=== PATIENT | female | born 1975 | race Caucasian/White ===

== ENCOUNTER → 2017-08-06 15:42 | Outpatient (CLI) | payer BC, SELFPAY ==
--- NOTE | 2017-08-06 15:55 | CT_ITS ---
CT abdomen wo con Ordering Physician: Brent Coffey Patient Age: 41 years: Female HISTORY: ITS.REASON: RT FLANK PAIN, NAUSEA, HEMATURIA Right flank pain and hematuria. HISTORY stones TECHNIQUE: Helical CT scanning performed at of pelvis with no oral nor IV contrast utilized Sagittal coronal and axial reconstructions on CT workstation COMPARISON : CT January 02, 2015 FINDINGS Lung bases clear. Calcified granuloma towards right lung base with calcified right hilar lymph node . Abdomen/pelvis. Lack of oral and IV contrast decreases sensitivity. Liver. No focal lesion. No significant findings Spleen normal size. Pancreas unremarkable. Adrenals unremarkable. Gallbladder. Heart contracted no calcified stones. No biliary ductal dilatation. Kidneys. Scattered punctate calculi throughout both kidneys but no recurrent urinary tract obstruction. The ovaries appear normal in caliber and appearance bilateral. Right kidney largest calculus measuring 5 mm lower pole right kidney. Smaller 3 mm calculi seen anterior midportion right kidney. Previously there were 2 small calculi in this locationqq and one has passed since 2015 Left kidney. A few Scattered small punctate ~3 mm calculi throughout left kidney with no obstruction. Pelvis. Anteverted uterus. Normal size. Ovaries appear normal in size with right larger than left. Right ovary 3 cm APx 3 cm transverse... Left ovary 3 cm length x 1.5 cm. No fluid in cul-de-sac. Urinary bladder unremarkable Appendix identified and normal. Large bowel Moderate stool throughout the right colon and transverse colon of minimal stool and gas throughout the left colon and redundant sigmoid colon. Small fat-containing Ventral hernia seen at the midline upper abdomen.- This is located 5 cm superior to the umbilicus. The abdominal wall defect here measuring 12 mm height 20 mm transverse. Fat-containing hernia sac measures 2.5 cm. There is some minor stranding here which could reflect some minor inflammation. Is patient focally tender here currently?. This was present on previous 2014 study in retrospect and only slightly more evident today. Bones. No significant osseous lesions or or findings. Early degenerative facet changes lower L-spine IMPRESSION: 1. Bilateral punctate renal calculi again noted. But No current obstructive uropathy. No hydronephrosis Right & left ureter appear normal in caliber. 2. Small fat-containing midline ventral hernia. Slightly more evident than previous study. Up to 2 cm abdominal wall defect is slightly larger in 2015,. Minor stranding involving fat extending into small hernia sac fairly similar to prior study but warrants correlation. 3. Appendix normal. Right ovary normal size but slightly larger than left. No fluid in cul-de-sac
== END ==
PROVIDERS: PCP Internal Medicine; Visit Provider Internal Medicine
DX: R10.9 Unspecified abdominal pain (principal); R11.0 Nausea; R31.9 Hematuria, unspecified
CPT/HCPCS: 74150

== ENCOUNTER 2017-08-20 09:30 | Outpatient (RCR) | payer BC, SELFPAY | END 2017-08-20 09:31 | disposition home or self-care (01) | LOC: PT 09:30 | PROVIDERS: Family Provider Internal Medicine; PCP Internal Medicine; Visit Provider Internal Medicine | DX: S39.012A Strain of muscle, fascia and tendon of lower back, initial encounter (principal) | CPT/HCPCS: 97010; 97014; 97110; 97163; G0283 ==

== ENCOUNTER → 2018-01-13 08:11 | Outpatient (CLI) | payer BC, SELFPAY ==
[2018-01-13 08:36] LABS: Basophils # 0.1 K/mm3 (0-0.2); Basophils % 0.6 % (0.1-2.0); Eosinophils # 0.3 K/mm3 (0.0-0.4); Eosinophils % 2.3 % (0.1-12.0); Hematocrit 38.7 % (37.0-47.0); Hemoglobin 12.2 g/dL (12.2-16.2); Lymphocytes # 3.6 K/mm3 (0.7-4.5); Lymphocytes % 30.5 K/mm3 (10-50); Mean Corpuscular HGB Conc 31.4 g/dL (31.8-35.4); Mean Corpuscular Hemoglobin 25.7 pg (27.0-31.2); Mean Corpuscular Volume 81.8 fl (81-99); Mean Platelet Volume 7.3 fl (7.4-10.4); Monocytes # 0.9 K/mm3 (0.1-1.0); Monocytes % 7.2 % (1.7-9.3); Neutrophils % 59.4 % (37.0-80.0); Platelet Count 409 K/mm3 (142-424); Red Blood Count 4.73 M/mm3 (4.20-5.40); Red Cell Distribution Width 14.3 % (11.5-17.5); White Blood Count 11.9 K/mm3 (4.8-10.8)
[2018-01-13 08:44] LABS: Urine Pregnancy, HCG Qual. Negative (Negative)
[2018-01-13 10:03] LABS: Anion Gap 9.8 mEq/L (5-15); Blood Urea Nitrogen 14 mg/dL (7-18); Calcium 9.4 mg/dL (8.5-10.1); Carbon Dioxide 33 mmol/L (21.0-32.0); Chloride 104 mmol/L (98-107); Creatinine,Serum 0.75 mg/dL (0.55-1.02); Estimated Glomerular Filt Rate 85 ml/min (>60); GFR (African American) 103 ML/MIN (>60); Glucose 85 mg/dL (74-106); Potassium 3.8 mmoL/L (3.5-5.1); Sodium 143 mmol/L (136-145)
== END ==
PROVIDERS: PCP Internal Medicine; Visit Provider Surgery
DX: N64.52 Nipple discharge (principal)
CPT/HCPCS: 36415; 80048; 81025; 85025

== ENCOUNTER → 2018-05-20 15:29 | Outpatient (CLI) | payer BC, SELFPAY ==
[2018-05-20 15:36] LABS: Basophils % 0.1 % (0.1-2.0); Eosinophils # 0.2 K/mm3 (0.0-0.4); Eosinophils % 1.4 % (0.1-12.0); Hematocrit 38.9 % (37.0-47.0); Hemoglobin 12.7 g/dL (12.2-16.2); Lymphocytes # 1.4 K/mm3 (0.7-4.5); Lymphocytes % 12.2 % (10-50); Mean Corpuscular HGB Conc 32.6 g/dL (31.8-35.4); Mean Corpuscular Hemoglobin 25.7 pg (27.0-31.2); Mean Corpuscular Volume 78.9 fl (81-99); Mean Platelet Volume 7.1 fl (7.4-10.4); Monocytes # 0.6 K/mm3 (0.1-1.0); Neutrophils # 9.2 K/mm3 (1.8-7.8); Neutrophils % 81.2 % (37.0-80.0); Platelet Count 343 K/mm3 (142-424); Red Blood Count 4.93 M/mm3 (4.20-5.40); Red Cell Distribution Width 14.6 % (11.5-17.5); White Blood Count 11.3 K/mm3 (4.8-10.8)
[2018-05-20 16:06] LABS: Alanine Aminotransferase 27 U/L (12-78); Albumin Level 3.4 gm/dL (3.4-5.0); Alkaline Phosphatase 73 U/L (46-116); Amylase 29 U/L (25-115); Aspartate Amino Transferase 17 U/L (15-37); Bilirubin,Direct 0.1 mg/dL (0.0-0.2); Bilirubin,Indirect 0.3 mg/dL (0.0-0.9); Bilirubin,Total 0.4 mg/dL (0.2-1.0); Total Protein,Serum 7.3 gm/dL (6.4-8.2)
== END ==
PROVIDERS: Visit Provider Internal Medicine
DX: R10.13 Epigastric pain (principal)
CPT/HCPCS: 80076; 82150; 85025

== ENCOUNTER → 2018-06-23 14:40 | Outpatient (CLI) | payer BC, SELFPAY ==
--- NOTE | 2018-06-23 14:52 | US_ITS ---
MM Dig mamm DX unilat RT CAD, US breast RT complete INDICATION: Palpable nodule at 1:00, recent breast surgery ORDERING PHYSICIAN: Price Lockhart MD PATIENT AGE: 42 years COMPARISON: 11/16/2017, 12/05/2014 TECHNIQUE: Right mammogram with right breast ultrasound with axilla FINDINGS: Initially ultrasound was performed demonstrating a hypoechoic irregular mass at the 2:00 region with posterior acoustical shadowing. In addition there is a 10 x 8 mm isoechoic nodule in the subcutaneous tissues at 2:00 near the nipple also in the palpable area. Cannot determine if this has posterior acoustical shadowing as it is just superficial to the previously described hypoechoic lesion. No other significant anomalies are evident. Right mammogram: Right mammogram was performed in conjunction with the ultrasound demonstrating a spiculated 2.4 x 2.5 cm irregular area of increased density in the medial aspect of the right breast. This was not present on 11/16/2017 and probably represents scarring. Core biopsy suggested for confirmation. There is an area of asymmetric density in the central aspect of the right breast at 5 mm. Probably benign. No other significant anomalies are evident. IMPRESSION: 2.5 cm irregular spiculated density in the medial aspect of the right retroareolar region with a corresponding hypoechoic lesion on ultrasound. As probably represents postsurgical scarring. Neoplasm cannot be excluded based on the appearance. There is an additional isoechoic nodule in the subcutaneous region superficial to this more suspicious lesion. Was not apparent on the older ultrasound of 12/05/2014. Core biopsy of both nodules recommended with sonographic guidance BI-RADS Category: 4 Suspicious Abnormality-Biopsy Considered RECOMMENDED FOLLOW-UP: BIO - BIOPSY RECOMMENDED (A letter has been sent to the patient regarding results of the study.)
== END ==
PROVIDERS: PCP Internal Medicine; Visit Provider Surgery
DX: N63.10 Unspecified lump in the right breast, unspecified quadrant (principal)
CPT/HCPCS: 76641; 77065

== ENCOUNTER → 2018-07-19 09:17 | Outpatient (CLI) | payer BC, SELFPAY ==
--- NOTE | 2018-07-19 09:18 | US_ITS ---
US Biopsy Breast CLINICAL INDICATION: Right breast nodule in subareolar region with palpable abnormality ITS.REASON: rt breast biopsy ORDERING PHYSICIAN: Price Lockhart MD PATIENT AGE: 42 years COMPARISON: 06/23/2018 TECHNIQUE: Following obtaining informed consent using sonographic guidance under aseptic conditions fine-needle aspiration and core biopsy was obtained of the subareolar nodules. Nodule which is the more hyperechoic nodule was initially aspirated with a 27-gauge needle. Core biopsy was then performed a 19-gauge Can-Cut biopsy needle. Pathology nodule A: Consistent with previous biopsy site changes and associated fat process. No evidence of malignancy. FNA nodule A: Negative for malignant cells. The area of hypoechogenicity which is labeled as B deep to the nipple was then aspirated with a 27-gauge needle and then core biopsy was performed with a 19-gauge Can-Cut needle. FNA B: Negative for malignant cells. Pathology B: Consistent with previous biopsy site changes and associated fat necrosis. No evidence of malignancy IMPRESSION: Fine-needle aspiration and core biopsy of the palpable nodule the right breast and deeper area of hypoechogenicity showing benign findings consistent with previous biopsy changes and fat necrosis. Recommend 6 month mammographic and sonographic follow-up per routine protocol
== END ==
PROVIDERS: PCP Internal Medicine; Visit Provider Surgery
DX: N63.10 Unspecified lump in the right breast, unspecified quadrant (principal)
CPT/HCPCS: 10005; 76642; 76942

== ENCOUNTER → 2018-07-21 07:30 | Outpatient (CLI) | payer BC, SELFPAY ==
--- NOTE | 2018-07-21 07:32 | CA_ITS ---
PROCEDURE: 2-D M-mode and color Doppler study INDICATIONS FOR THE TEST: Chest painX COPD Heart MurmurX Tobacco Smoking Palpitations FatigueX Syncope Edema HypertensionXDiabetes Mellitus Rheumatic Fever SOBXDOE ObesityXHyperlipidemia Family History HD Additional History ABN EKG PATIENT INFORMATION HEIGHT:64 WEIGHT:242 GENDER: Female B/P:178/91 2-D/M-MODE INTERPRETATION: 2-D MEASUREMENTS OBSERVED VALUES IN CMS Right Ventricular Dimension (RVDd) 1.9 Interventricular Septum (Thickness)(IVsd) 1.2 Left Ventricular Internal Dimensions(LVIDd) 5.0 Left Ventricular Posterior Wall (Thickness)(LVPWd) 1.2 Aortic Root 3.0 Aortic Cusp Separation 1.6 Left Atrial Dimensions (LAD) 3.6 2D 1. Left atrium is normal size, left ventricle is normal size, left ventricle wall thickness is upper limit of normal, it is preserved left ventricular systolic function, visually estimated ejection fraction 55% with no regional wall motion abnormality. 2. The right atrium and the ventricular normal size and contractility. 3. The aortic, mitral and tricuspid valve are grossly normal. 4. The pulmonic valve is poorly visualized. 5. No significant pericardial effusion noted. DOPPLER INTERROGATION: Doppler interrogation of the aortic, mitral and tricuspid valvular presence of mild mitral and tricuspid regurgitation, tricuspid regurgitation jet velocity is inadequate for calculation of the right ventricular systolic pressure, diastolic parameters are within normal range. CONCLUSION: 1. Normal left ventricular size, left ventricular systolic function, visually estimated ejection fraction 55% with no regional wall motion abnormality, diastolic parameters are within normal range. 2. Mild mitral and tricuspid regurgitation 3. No significant pericardial effusion noted.
--- NOTE | 2018-07-21 07:32 | AS_ITS ---
Renal Arterial Duplex Indications: 405.91 Unspecified renovascular hypertension. IMPRESSIONS Normal bilateral renal artery evaluation. History: Risk factors: Hypertension. Complete renal arterial duplex. Duplex scan and Doppler flow study including spectral analysis, color and ross scale imaging. Height: Height: 162.6cm. Height: 64in. Weight: Weight: 109.8kg. Weight: 241.5lb. Body mass index: BMI: 41.5kg/m^2. Body surface area: BSA: 2.28m^2. Location: Vascular laboratory. Patient status: Outpatient. Tables: Arterial flow: + +--------+--------+ Location V sys V ed + +--------+--------+ Right renal - proximal 169cm/s 68.4cm/s + +--------+--------+ Right renal - mid 153cm/s 46.9cm/s + +--------+--------+ Right renal - distal 183cm/s 26.4cm/s + +--------+--------+ Left renal - proximal 99.3cm/s 30.2cm/s + +--------+--------+ Left renal - mid 207cm/s 68.4cm/s + +--------+--------+ Left renal - distal 177cm/s 67.9cm/s + +--------+--------+ Right renal-origin 150cm/s 47.9cm/s + +--------+--------+ Left renal-origin 91.3cm/s 20.6cm/s + +--------+--------+ Aorta-prox 126cm/s -------- + +--------+--------+ Renal anatomy: + +------+------+ Left Right + +------+------+ Long axis 10.5cm 11.6cm + +------+------+ Short axis 6.1cm 7.5cm + +------+------+ Cortical thickness 2.2cm 1.8cm + +------+------+ Velocity ratios: + +-----+ V sys + +-----+ Right renal/aortic 1.5 + +-----+ Left renal/aortic 1.6 + +-----+ (Report amended ) Electronically signed by: Carlos Saucedo [id number]
== END ==
PROVIDERS: PCP Internal Medicine; Visit Provider Internal Medicine
DX: D86.9 Sarcoidosis, unspecified (principal); I10 Essential (primary) hypertension; R06.00 Dyspnea, unspecified; R07.9 Chest pain, unspecified
CPT/HCPCS: 93306; 93976

== ENCOUNTER → 2020-02-08 17:19 | Outpatient (CLI) | payer BC, SELFPAY | PROVIDERS: Visit Provider Nurse Practitioner Family | DX: Z02.4 Encounter for examination for driving license (principal) | CPT/HCPCS: 87086 ==

== ENCOUNTER → 2020-02-09 11:14 | Outpatient (CLI) | payer BC, SELFPAY ==
--- NOTE | 2020-02-09 11:19 | XR_ITS ---
PROCEDURE: XR LUMBAR SPINE MIN 4V CLINICAL INDICATION: LOW BACK PAIN COMPARISON: CR [id number] XR lumbar spine min 4V from 08/13/2017 FINDINGS: There is normal curvature and alignment. All lumbar vertebrae appear intact. There is no pars defect. There is no disc space narrowing. There are mild hypertrophic facet changes at the L5-S1 level. The SI joints appear normal. There is no significant joint space narrowing of either hip. IMPRESSION: Essentially unremarkable lumbar spine except for minor facet changes L5-S1 Dictated by: Dr. Matthias Jackson MD 02/09/2020 11:44 Dr. Matthias Jackson MD in [place] 02/09/2020 11:44
== END ==
PROVIDERS: PCP Internal Medicine; Visit Provider Internal Medicine
DX: M54.5 Low back pain (principal)
CPT/HCPCS: 72110

== ENCOUNTER → 2020-03-16 10:58 | Outpatient (CLI) | payer BC, SELFPAY ==
--- NOTE | 2020-03-16 | MR_ITS ---
PROCEDURE: MR LUMBAR SPINE WO CON CLINICAL INDICATION: LBP Pt c/o lbp with rt hip pain and numbness. Pt denies injury or trauma and states pain is chronic in nature but getting worse. COMPARISON: CT ABDWO CT abdomen wo con from 08/06/2017 CR XR LUMBAR SPINE MIN 4V from 02/09/2020 TECHNIQUE: Standard multiplanar multiecho sequences are performed without contrast. 3-D MIP and myelographic images are also rendered and reviewed FINDINGS: There is normal alignment. The spinal cord ends at the L2 level. L1-L2, L2-L3, L3-L4, and L4-5 have an unremarkable appearance. L5-S1: There is mild concentric bulging disc with a small broad-based central and right paracentral disc protrusion causing mild right lateral recess narrowing but without impingement upon the underlying nerve roots. IMPRESSION: 1. Mild bulging disc with mild degenerative disc disease at L5-S1 with a small broad-based central and right paracentral disc protrusion without impingement 2. No extruded herniated disc or canal stenosis. Dictated by: Carlos Saucedo MD 03/19/2020 13:01 Carlos Saucedo MD in [place] 03/19/2020 13:01
== END ==
PROVIDERS: PCP Internal Medicine; Visit Provider Internal Medicine
DX: M54.5 Low back pain (principal); R20.2 Paresthesia of skin
CPT/HCPCS: 72148; 76376

== ENCOUNTER → 2020-08-20 16:11 | Outpatient (CLI) | payer BC, SELFPAY | PROVIDERS: Visit Provider Surgery | DX: Z01.812 Encounter for preprocedural laboratory examination (principal); Z11.52 Encounter for screening for COVID-19; Z13.810 Encounter for screening for upper gastrointestinal disorder | CPT/HCPCS: U0003 ==

== ENCOUNTER 2020-08-22 06:31 | Day surgery (SDC) | payer BC, SELFPAY ==
[2020-08-20 13:58] VITALS: BMI 41.1
[2020-08-22 06:56] VITALS: BP 194/100; PULSE 77; RESP 18; TEMP 36.6; O2SAT 98
--- NOTE | 2020-08-22 07:05 | HMH.ANESCL ---
[facility] Anesthesia Checklist - Patient Identification Patient Identification: Arm Band - Structural Data Admitted From: Home Planned Operative Procedure/s: Colonoscopy Consent for Planned Operative Procedure(s) Verified: Yes - NPO Status Verified Time NPO: 00:00 - Additional verifications Anesthesia Reactions: No Hx Blood Transfusions: No Blood Transfusion Reaction: No - Airway Assessment C-Spine Mobility Assessed: Yes TMJ Mobility Assessed: Yes Dentition: Good Dentition - Neurological Assessment Level of Consciousness: Awake, Alert - Anesthesia Plan Anesthesia Risk discussed: Yes Anesthesia Plan: Verified ASA Class: III Anesthesia Type: MAC [facility] History I have reviewed the patient's past medical history: Yes Medical History: Reports:: Asthma, Hiatal Hernia, Hypertension (Severe), Lung Disease (Sarcoidosis) Denies:: Cancer, Diabetes Mellitus Type 1, Diabetes Mellitus Type 2, Internal Pacemaker, MRSA, Seizures *Have you ever received a pneumonia vaccine?: Yes *Have you received a flu vaccine this season?: Yes Other Medical History: Reports: Arthritis. Denies: Blood Transfusion Reaction Anesthesia experience/problems:: None Laterality Cases: Right: Carpal Tunnel Release Other Surgeries: Yes: No Previous Surgery, Colonoscopy, Other. No: Pacemaker Amputation: No Fractures: No - *Social History Last grade of school completed: Some college Smoking Status: Former smoker # Packs/Day (cigarettes): 1 #Yrs smoked (if former smoker): 15 Alcohol Intake: never Substance Use Type: denies use *Occupational Status:: employed Housing: house Household Members: none *Travel in the last 8 weeks: None Family Hx:: Cancer
[2020-08-22 07:26] VITALS: O2SAT 97
--- NOTE | 2020-08-22 07:39 | HMH.SCOPE ---
- Procedure: Date: 08/22/20 Patient Date of :: 1975 Procedure Performed:: Esophagogastroduodenoscopy with biopsy Indications:: Reflux Performing Provider:: Price Lockhart MD Referring Provider:: Dr. Coffey Sedation:: Monitored anesthesia care Procedure:: After informed consent was obtained the patient was taken to the endoscopy suite. Sedation ensued after the patient was transferred to the left lateral decubitus position. Pulse, blood pressure, and oxygen saturation were monitored throughout the procedure. The endoscope was advanced beyond the duodenal bulb. Retroflexion within the gastric lumen was accomplished. The gastroscope was carefully removed and the patient was transferred to recovery in stable condition. Please see findings and specimens below for detail. Findings:: Gastroesophageal junction at 38 cm Lobulated focal inflammation at gastroesophageal junction Minimal sliding hiatal hernia Focal inflammation at pylorus Bilious reflux Specimens:: Biopsy of focal inflammation of pylorus Antral biopsy Biopsy of focal lobulated inflammation at gastroesophageal junction Recommendations:: Follow-up pathology Complications:: No immediate Estimated blood obtained (mL): 1
[2020-08-22 07:41] VITALS: BP 131/66; PULSE 63; RESP 18; TEMP 36.2; O2SAT 95
[2020-08-22 07:51] VITALS: BP 127/83; PULSE 60; RESP 18; O2SAT 96
[2020-08-22 08:01] VITALS: BP 147/90; PULSE 56; RESP 18; O2SAT 97
[2020-08-22 08:17] VITALS: BP 160/99; PULSE 54; RESP 18; O2SAT 98
== END 2020-08-22 08:19 | disposition home or self-care (01) ==
PROVIDERS: PCP Internal Medicine; Visit Provider Surgery
PROC: 0DJ08ZZ Inspection of Upper Intestinal Tract, Via Natural or Artificial Opening Endoscopic (ICD-10-PCS; CPT 43235; principal; 2020-08-22 07:30)
DX: K20.90 Esophagitis, unspecified without bleeding (principal); K44.9 Diaphragmatic hernia without obstruction or gangrene; K29.70 Gastritis, unspecified, without bleeding; K21.9 Gastro-esophageal reflux disease without esophagitis; J45.909 Unspecified asthma, uncomplicated; I10 Essential (primary) hypertension; Z87.891 Personal history of nicotine dependence; Z87.39 Personal history of other diseases of the musculoskeletal system and connective tissue; Z82.49 Family history of ischemic heart disease and other diseases of the circulatory system; Z82.3 Family history of stroke; Z88.6 Allergy status to analgesic agent; Z88.1 Allergy status to other antibiotic agents
CPT/HCPCS: 43239

== ENCOUNTER → 2020-09-02 13:56 | Outpatient (CLI) | payer BC, SELFPAY ==
--- NOTE | 2020-09-02 13:56 | US_ITS ---
PROCEDURE: MM DIG MAMM BI DX W/CAD Digital Breast Tomosynthesis Included CLINICAL INDICATION: nipple discharge COMPARISON: MG DMDB DIG MAMM-DX YOVANA from 12/05/2014 MG DXRT MM Dig mamm DX unilat RT CAD from 06/23/2018 US US BREAST RT COMPLETE from 09/02/2020 TECHNIQUE: Standard views are obtained along with spot compression views of the right breast and right breast ultrasound. FINDINGS: Average fibroglandular tissue. Right breast: Surgical clips along with asymmetric density with radiating folds noted in the retroareolar region slightly medial and inferior in the central aspect of the right breast consistent with scar. The asymmetric density has decreased in size compared to 06/23/2018. There is a cluster calcifications which are mostly coarse in this region as well which may be due to developing fat necrosis. Right breast ultrasound: There is a hypoechoic shadowing region in the retroareolar area consistent with scar. No other significant anomalies. Left breast: Stable benign-appearing nodule in the upper aspect of the left breast consistent with a lymph node. Small area of asymmetry in the medial aspect of the left breast central aspect not clearly delineated on the kevin images and may represent an area of asymmetric fibroglandular tissue. No malignant appearing mass or malignant-appearing microcalcification. IMPRESSION: Probably benign findings regarding the calcifications in the right breast in the asymmetric density in the left breast. Recommend six-month follow-up BI-RAD Category: 3 Probably Benign Finding Short Term Follow-Up FOLLOW-UP: 6M 6 Month Follow-up (A letter has been sent to the patient regarding results of the study.) Dictated by: Carlos Saucedo MD 09/10/2020 07:40 Carlos Saucedo MD in [place] 09/10/2020 07:40
== END ==
PROVIDERS: PCP Internal Medicine; Visit Provider Surgery
DX: N64.52 Nipple discharge (principal); R92.1 Mammographic calcification found on diagnostic imaging of breast
CPT/HCPCS: 76641; 77062; 77066; G0279

== ENCOUNTER → 2020-11-29 14:43 | Outpatient (CLI) | payer BC, SELFPAY ==
--- NOTE | 2020-11-29 14:45 | MR_ITS ---
PROCEDURE INFORMATION: Exam: MR Head Without and With Contrast, Sella Exam date and time: 11/29/2020 2:45 PM Age: 45 years old Clinical indication: Pain; Headache; Additional info: Headache, galactorrhea. Discharge out of breast x5yrs. Mirgraine headache. Dizziness and blurred vision. 20ml prohance given. Lot: [id number] exp: Jan [address] 03-14-14 TECHNIQUE: Imaging protocol: MR of the head without and with intravenous contrast. Exam focused on the sella. Contrast material: PROHANCE; Contrast volume: 20 ml; Contrast route: IV; COMPARISON: HDWO CT HEAD W/O CONTRAST 03/14/2014 6:02 PM FINDINGS: Brain: No acute infarct identified on the diffusion-weighted imaging. No evidence of brain parenchymal edema or intracranial mass effect. No significant white matter disease. No pathologic intracranial enhancement. 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 Cerebral ventricles: Unremarkable. No ventriculomegaly. Pituitary gland and sella: Unremarkable. Pituitary gland is normal in size maintaining a concave superior contour. No differential contrast enhancement identified within the gland to represent a discrete adenoma. Bones/joints: Unremarkable. IMPRESSION: 1. Unremarkable MRI brain. 2. No evidence of pituitary adenoma.
== END ==
PROVIDERS: PCP Internal Medicine; Visit Provider Internal Medicine
DX: R51.9 Headache, unspecified (principal); O92.6 Galactorrhea; E22.1 Hyperprolactinemia; R43.0 Anosmia
CPT/HCPCS: 70553; A9576

== ENCOUNTER → 2022-03-06 14:37 | Outpatient (CLI) | payer OTHER, SELFPAY | PROVIDERS: PCP Internal Medicine; Visit Provider Nurse Practitioner Family | DX: G47.33 Obstructive sleep apnea (adult) (pediatric) (principal) ==

== ENCOUNTER → 2022-03-23 16:27 | Outpatient (CLI) | payer OTHER, SELFPAY | LOC: SL 16:27 | PROVIDERS: PCP Nurse Practitioner Family; Visit Provider Nurse Practitioner Family | DX: G47.33 Obstructive sleep apnea (adult) (pediatric) (principal); R06.83 Snoring | CPT/HCPCS: 95806 ==

== ENCOUNTER 2022-04-25 12:37 | Emergency (ER) | payer OTHER, SELFPAY ==
[2022-04-25 12:38] VITALS: BP 216/99; PULSE 70; RESP 22; TEMP 36.8; O2SAT 98; BMI 41.1
--- NOTE | 2022-04-25 12:59 | EXP.UTC ---
Discharge Plan Disposition Patient Disposition: Home, Self-Care Condition: Good Prescriptions Prescriptions: No Action Ventolin HFA 90 mcg/actuation HFA aerosol inhaler 1 puff INHALATION Q6H PRN (Reason: lungs) Qty: 8 0RF amlodipine 10 mg tablet 10 mg PO BID Qty: 180 0RF bisoprolol fumarate 10 mg tablet 10 mg PO DAILY Qty: 90 0RF omeprazole 20 mg tablet,delayed release (DR/EC) 20 mg PO DAILY Qty: 30 0RF spironolactone 25 mg tablet 25 mg PO DAILY Qty: 90 0RF Symbicort 160-4.5 mcg/actuation HFA aerosol inhaler 2 puff INHALATION DAILY PRN (Reason: lungs) valsartan-hydrochlorothiazide 160-12.5 mg tablet 1 tab PO DAILY Qty: 30 5RF Referrals Follow up/Referrals: Brent Coffey MD [Primary Care Provider] - See instructions Activity Restrictions/Add. Instructions Additional Instructions/Restrictions: At this time was felt you are safe to be discharged home. If new or worsening symptoms please do not hesitate to return for continued evaluation. Please follow-up with your family doctor within 1 week for continued evaluation of long-term management of your blood pressure. Clinical Impressions Clinical Impression: Strain of lumbar region, Asymptomatic hypertension Instructions Patient Instructions: Managing Chronic Low Back Pain, Low Back Pain (Alternative Therapy), High Blood Pressure (Hypertension) (Alternative Therapy), Essential Hypertension, DI for Low Back Pain, Activity May Be Better Than Rest for Low Back Pain Recovery, Exercise May Reduce Risk of Low Back Pain Discharge ED Provider: Charles Martell [facility] General Chief complaint: PAIN Stated complaint: back pain, no accident Time Seen by Provider: 04/25/22 12:58 History of Present Illness Provider Complaint: Pt states that she was moving some furniture around and then could barely get out of bed for the pain in her lower back. Pt states that she had to wiggle out of the bed as crossing her right leg over her left hurt to badly. She states that she woke up late this morning and took her blood pressure medication shortly prior to arrival. Related Data Home Medications Medication Instructions Recorded Confirmed budesonide-formoterol HFA 160 2 puff inhalation DAILY PRN lungs 04/15/22 07/14/22 mcg-4.5 mcg/actuation aerosol inhaler (Symbicort) Previous Rx's Medication Instructions Recorded albuterol sulfate 90 mcg/actuation 1 puff inhalation Q6H PRN lungs #8 02/19/22 aerosol inhaler (Ventolin HFA) grams amlodipine 10 mg tablet 10 mg PO BID bp #180 tabs 02/19/22 bisoprolol fumarate 10 mg tablet 10 mg PO DAILY bp #90 tabs 02/19/22 omeprazole 20 mg tablet,delayed 20 mg PO DAILY GERD #30 tabs 02/19/22 release spironolactone 25 mg tablet 25 mg PO DAILY Fluid #90 tabs 02/19/22 valsartan 160 1 tab PO DAILY #30 tabs 07/14/22 mg-hydrochlorothiazide 12.5 mg tablet Allergies Allergy/AdvReac Type Severity Reaction Status Date / Time amoxicillin [AMOXICILLIN] Allergy Unknown NERVOUS Verified 07/14/22 13:11 codeine [CODEINE] Allergy Unknown SKIN Verified 07/14/22 13:11 [facility] Disclaimer: The information contained in this section may have been updated after the patient was seen, as this information can be updated by other users. 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
--- NOTE | 2022-04-25 13:59 | PC.NURSE ---
Called Emily patrick
[2022-04-25 14:10] VITALS: BP 216/95; PULSE 74; RESP 18; O2SAT 100; BMI 40.9
--- NOTE | 2022-04-25 15:16 | HMH.EDGENADL ---
Discharge Plan Disposition Patient Disposition: Home, Self-Care Condition: Good Prescriptions Prescriptions: No Action Ventolin HFA 90 mcg/actuation HFA aerosol inhaler 1 puff INHALATION Q6H PRN (Reason: lungs) Qty: 8 0RF amlodipine 10 mg tablet 10 mg PO BID Qty: 180 0RF bisoprolol fumarate 10 mg tablet 10 mg PO DAILY Qty: 90 0RF lisinopril-hydrochlorothiazide 20-12.5 mg tablet 1 tab PO BID Qty: 180 0RF omeprazole 20 mg tablet,delayed release (DR/EC) 20 mg PO DAILY Qty: 30 0RF spironolactone 25 mg tablet 25 mg PO DAILY Qty: 90 0RF Symbicort 160-4.5 mcg/actuation HFA aerosol inhaler 2 puff INHALATION DAILY PRN (Reason: lungs) naproxen 500 mg tablet 500 mg PO BID PRN Referrals Follow up/Referrals: Brent Coffey MD [Primary Care Provider] - See instructions Activity Restrictions/Add. Instructions Additional Instructions/Restrictions: At this time was felt you are safe to be discharged home. If new or worsening symptoms please do not hesitate to return for continued evaluation. Please follow-up with your family doctor within 1 week for continued evaluation of long-term management of your blood pressure. Clinical Impressions Clinical Impression: Strain of lumbar region, Asymptomatic hypertension Instructions Patient Instructions: Managing Chronic Low Back Pain, Low Back Pain (Alternative Therapy), High Blood Pressure (Hypertension) (Alternative Therapy), Essential Hypertension, DI for Low Back Pain, Activity May Be Better Than Rest for Low Back Pain Recovery, Exercise May Reduce Risk of Low Back Pain Discharge ED Provider: Charles Martell General Adult HPI General Stated complaint: back pain, no accident Time Seen by Provider: 04/25/22 12:58 Mode of Arrival: Ambulatory Source of Information: Patient Limitations: No Limitations Description of Symptoms (Recalled from ER Triage Doc. by RN): Pushed a couch on wed and caused back pain History of Present Illness HPI narrative: Patient is a 46-year-old with past medical history of hypertension on multiple antihypertensives, sarcoidosis who presents emergency department to transfer patient from clinic for evaluation of hypertension. Patient presented to clinic for evaluation of back pain which patient is not currently complaining of. Due to significant high blood pressure systolic over 200 on multiple readings a transfer over here for continued evaluation. Patient states that she took her blood pressure medication late this morning at 11 AM when she normally takes it at 6 AM. Patient was given a dose of clonidine in clinic prior to transfer here. Patient has no complaints. Denies headaches, chest pain, abdominal pain, shortness of breath, acute rashes or arthralgias. Related Data Home Medications Medication Instructions Recorded Confirmed budesonide-formoterol HFA 160 2 puff inhalation DAILY PRN lungs 04/15/22 mcg-4.5 mcg/actuation aerosol inhaler (Symbicort) naproxen 500 mg tablet 500 mg PO BID PRN 04/15/22 Previous Rx's Medication Instructions Recorded albuterol sulfate 90 mcg/actuation 1 puff inhalation Q6H PRN lungs #8 02/19/22 aerosol inhaler (Ventolin HFA) grams amlodipine 10 mg tablet 10 mg PO BID bp #180 tabs 02/19/22 bisoprolol fumarate 10 mg tablet 10 mg PO DAILY bp #90 tabs 02/19/22 lisinopril 20 1 tab PO BID blood pressure #180 02/19/22 mg-hydrochlorothiazide 12.5 mg tabs tablet omeprazole 20 mg tablet,delayed 20 mg PO DAILY GERD #30 tabs 02/19/22 release spironolactone 25 mg tablet 25 mg PO DAILY Fluid #90 tabs 02/19/22 Allergies Allergy/AdvReac Type Severity Reaction Status Date / Time amoxicillin [AMOXICILLIN] Allergy Unknown NERVOUS Verified 04/25/22 13:03 codeine [CODEINE] Allergy Unknown SKIN Verified 04/25/22 13:03 [facility] Disclaimer: The information contained in this section may have been updated after the patient was seen, as this information can be
[2022-04-25 15:17] VITALS: BP 140/80; PULSE 69; RESP 20; O2SAT 100
[2022-04-25 17:01] VITALS: BP 162/60; PULSE 69; RESP 16; TEMP 36.7
== END 2022-04-25 17:03 | disposition home or self-care (01) ==
LOC: UTC 13:16 → ER 14:12
PROVIDERS: Emergency Provider Emergency Medicine; PCP Internal Medicine
DX: S39.012A Strain of muscle, fascia and tendon of lower back, initial encounter (principal); I10 Essential (primary) hypertension; X50.0XXA Overexertion from strenuous movement or load, initial encounter; Z87.891 Personal history of nicotine dependence
CPT/HCPCS: 96372; 99283; 99284

== ENCOUNTER → 2022-06-10 14:11 | Outpatient (CLI) | payer OTHER, SELFPAY ==
--- NOTE | 2022-06-10 14:15 | CA_ITS ---
APPROVED REPORT EXAM: Comprehensive 2D, Doppler, and color-flow Echocardiogram Retina Subspecialist: Edda Ansari RVT Ht: 5 ft 4 in Wt: 252lbs BSA: 2.16 BP: 110/70 mmHg Indications: CP.HTN,SOA,SMITH,SARCOIDOSIS 2D Dimensions LVOT 2.14 cm (M/F) 1.5-2.5 LA Volume 43.40 mL LA Volume Index 20.09 mL/m2 (M/F) 16-34 M-Mode Dimensions RVDd 2.20 cm (0.9-2.6) LA Diam 4.25 cm (1.9-4.0) LVDd 4.70 cm (3.5-5.7) Ao Diam 2.82 cm (2.0-3.7) LVDs 2.73 cm (3.5-5.7) IVSd 1.33 cm (0.6-1.1) PWd 1.18 cm (0.6-1.1) EF (Teich) 72.90% FS 41.90% EDV (Teich) 102.40 mL TAPSE 2.59 (<1.7) ESV (Teich) 27.80 mL LV Diastology E Decel Time 197.00 (160-240 msec) E/A Ratio 1.1 MED E' 5.80 (< 7 cm/sec) E'/MED E' Ratio 14.16 (>14) LAT E' 10.10 (<10 cm/sec) E/LAT E' Ratio 8.13 (>14) Aortic Valve AO Peak GR. 10.20 mmHg Mitral Valve MV E Max Andres. 82.00 (40-130 cm/s) MV A Velocity 78.00 (40-130 cm/s) E/A Ratio 1.05 MV Decel. Time 197.00 (160-240 ms) MV PHT 58.00 ms Pulmonary Valve PV Peak Velocity 120.00 (50-150 cm/s) Tricuspid Valve TR P. Velocity 259.00 cm/s RAP Estimate 10.00 mmHg RVSP 36.90 mmHg Left Ventricle Left atrium is mildly enlarged, left ventricle is normal size, estimated ejection fraction 55% with no regional wall motion abnormality, grade 1 diastolic dysfunction seen without tissue Doppler evidence of raise left atrial pressure. Right Ventricle Right atrium and right ventricle qualitatively mildly enlarged with normal contractility. Aortic Valve Aortic valve is minimally thickened and fibrosed there is no aortic stenosis aortic insufficiency. Mitral Valve Mitral valve is grossly normal, there is trace mitral regurgitation. Tricuspid Valve Tricuspid valve grossly normal, there is trace tricuspid regurgitation, tricuspid regurgitation jet velocity is inadequate for calculation of the right ventricular systolic pressure. Pulmonic Valve Pulmonic valve is poorly visualized. Great Vessels Aortic root is normal size. Inferior vena cava is normal size with normal inspiratory collapse. Pericardium No significant pericardial effusion noted. Conclusion 1. Mild biatrial enlargement, normal left ventricular size, mild concentric left ventricular hypertrophy, estimated ejection fraction 55% with no regional wall motion abnormality, grade 1 diastolic dysfunction seen without tissue Doppler evidence of trace left atrial pressure. 2. Mildly enlarged right ventricle with normal contractility. 3. Trace mitral and tricuspid regurgitation. 4. No significant pericardial effusion noted. 5. Inferior vena cava is normal size with normal inspiratory collapse. Electronically signed by : Gaston Casanova MD 06/11/2022 06:11:11
== END ==
LOC: RT 14:15
PROVIDERS: PCP Internal Medicine; Visit Provider Nurse Practitioner Family
DX: R06.02 Shortness of breath (principal); R07.9 Chest pain, unspecified
CPT/HCPCS: 93306

== ENCOUNTER → 2022-07-21 16:54 | Outpatient (CLI) | payer OTHER, SELFPAY ==
[2022-07-21 17:54] LABS: Chloride 101 mmol/L (98-107)
[2022-07-21 17:55] LABS: Potassium 3.5 mmoL/L (3.5-5.1); Sodium 139 mmol/L (136-145)
[2022-07-21 17:57] LABS: Alanine Aminotransferase 26 U/L (12-78); Albumin Level 4.1 g/dl (3.5-5.0); Albumin/Globulin Ratio 1.3 (1.1-1.8); Alkaline Phosphatase 74 U/L (38-126); Anion Gap 12.5 mEq/L (5-15); Aspartate Amino Transferase 28 U/L (14-36); Bilirubin,Total 0.5 mg/dl (0.2-1.3); Blood Urea Nitrogen 17 mg/dl (7-17); Carbon Dioxide 29 mmol/L (22.0-30.0); Estimated Glomerular Filt Rate 108 ml/min (>60); GFR (African American) 131 ML/MIN (>60); Globulin 3.2 g/dL (1.3-3.2); Total Protein,Serum 7.3 g/dl (6.3-8.2)
[2022-07-21 17:58] LABS: Calcium 9.2 mg/dl (8.4-10.2); Glucose 102 mg/dl (74-100)
== END ==
LOC: LAB 16:54
PROVIDERS: PCP Internal Medicine; Visit Provider Specialist
DX: R51.9 Headache, unspecified (principal)
CPT/HCPCS: 36415; 80053; 84146

== ENCOUNTER → 2022-07-22 08:42 | Outpatient (CLI) | payer OTHER, SELFPAY ==
--- NOTE | 2022-07-22 08:43 | MR_ITS ---
FINAL REPORT CLINICAL HISTORY: severe headache, hyperprolactinemia 23ML PROHANCE INJECTED FINDINGS: Multiplanar MR imaging of the brain was performed without and with contrast with attention to the pituitary. There is no evidence of intracranial hemorrhage or mass. No abnormal extra-axial fluid collection is seen. The ventricular size is within normal limits. There is no evidence of shift of the midline structures. The posterior fossa and brainstem have an unremarkable appearance. No area of abnormal restricted diffusion is identified. No abnormal contrast enhancement is seen. Normal major vessel vascular flow voids are noted. The pituitary gland is somewhat enlarged measuring 9 mm in height. No well-defined mass or nodule is identified. The pituitary stalk is midline. There is no suprasellar mass. The optic chiasm is normal. IMPRESSION: No acute intracranial abnormality identified. Pituitary gland is somewhat enlarged without a well-defined mass or nodule. Reviewed, Interpreted and Dictated by Dane Welch III, MD Transcribed by Christa Bowen Authenticated and [facility]
== END ==
LOC: RAD 08:42
PROVIDERS: PCP Nurse Practitioner Family; Visit Provider Specialist
DX: R51.9 Headache, unspecified (principal)
CPT/HCPCS: 70553; A9576

== ENCOUNTER → 2022-07-27 15:12 | Outpatient (CLI) | payer OTHER, SELFPAY ==
--- NOTE | 2022-07-27 15:18 | MM_ITS ---
PROCEDURE INFORMATION: Exam: MG Bilateral Screening 3D Mammography Exam date and time: 07/27/2022 3:10 PM Age: 46 years old Clinical indication: Screening. History of right subareolar duct benign excisional surgery. Family history of mother and maternal grandmother breast cancer. TECHNIQUE: Imaging protocol: Bilateral Screening tomosynthesis and 2D mammography including computer-aided detection (CAD) when performed. COMPARISON: 1. MG MM DIG MAMM BI DX W/CAD 09/02/2020 2:08 PM 2. MG DXRT MM Dig mamm DX unilat RT CAD 06/23/2018 3:51 PM 3. MG DMDB DIG MAMM-DX YOVANA 12/05/2014 4:19 PM 4. US BREAST RT COMPLETE 09/02/2020 2:54 PM FINDINGS: MAMMOGRAPHY: Breast composition: The breasts are heterogeneously dense, which may obscure small masses. Mass: None. Architectural distortion: Stable postsurgical architectural distortion, deformity, and surgical clips in the right subareolar region/inner breast. Calcifications: Interval increase in benign-appearing calcifications at the periphery of the benign surgical site. No suspicious calcifications. Asymmetric density: None. Skin thickening: None. Axillary adenopathy: None. IMPRESSION: No mammographic evidence of malignancy. Annual screening is recommended unless otherwise clinically indicated. ASSESSMENT: BI-RADS Category 2: Benign
== END ==
PROVIDERS: PCP Internal Medicine; Visit Provider Internal Medicine
DX: Z12.31 Encounter for screening mammogram for malignant neoplasm of breast (principal)
CPT/HCPCS: 77063; 77067

== ENCOUNTER → 2022-08-18 08:26 | Outpatient (CLI) | payer OTHER, SELFPAY ==
--- NOTE | 2022-08-18 08:33 | US_ITS ---
FINAL REPORT CLINICAL HISTORY: ABD WALL LUMP,ABD PAIN FINDINGS: ABDOMINAL ULTRASOUND COMPLETE: TECHNIQUE: Ultrasound images of the abdomen were obtained. FINDINGS: The liver is fatty infiltrated. The gallbladder is normal. The common duct is normal. The pancreas is partially obscured. The right kidney measures 11.8 cm in length and is normal in echogenicity without hydronephrosis. The left kidney measures 10.5 cm in length and is normal in echogenicity without hydronephrosis. Complex cyst in the left kidney measuring up to 3.1 cm. The spleen is unremarkable. The aorta is normal in caliber. The vena cava is unremarkable. Palpable abnormality in the abdominal wall corresponds to a fat containing hernia. Hernia defect measures 13 mm. IMPRESSION: Fatty liver. Complex left renal cyst. Fat containing hernia at the area of the palpable abnormality. Reviewed, Interpreted and Dictated by Srinivas Solis MD Transcribed by Tanvir Nix Authenticated and [facility]
== END ==
LOC: RAD 08:26
PROVIDERS: PCP Internal Medicine; Visit Provider Internal Medicine
DX: R10.9 Unspecified abdominal pain (principal); R19.00 Intra-abdominal and pelvic swelling, mass and lump, unspecified site
CPT/HCPCS: 76700

== ENCOUNTER → 2022-08-25 13:11 | Outpatient (POV) | payer OTHER, SELFPAY | PROVIDERS: Visit Provider Dermatology | DX: Z00.00 Encounter for general adult medical examination without abnormal findings (principal) ==

== ENCOUNTER → 2022-12-18 09:43 | Outpatient (CLI) | payer BC, SELFPAY ==
[2022-12-18 11:44] LABS: Free T4 (Free Thyroxine) 0.81 ng/dl (0.78-2.19)
[2022-12-18 11:59] LABS: Thyroid Stimulating Hormone 1.11 uIU/mL (0.465-4.68)
[2022-12-19 08:24] LABS: Triiodothyronine (T3) Free 1.9 pg/mL (2.0-4.4)
[2022-12-21 14:56] LABS: Angiotensin Converting Enzyme 27 U/L (14-82)
== END ==
PROVIDERS: PCP Internal Medicine; Visit Provider Specialist
DX: D86.9 Sarcoidosis, unspecified (principal)
CPT/HCPCS: 36415; 82164; 84439; 84443; 84481

== ENCOUNTER → 2023-02-08 12:37 | Outpatient (CLI) | payer BC, SELFPAY ==
--- NOTE | 2023-02-08 12:41 | XR_ITS ---
FINAL REPORT CLINICAL HISTORY: History of sarcoidosis COMPARISON: None FINDINGS: Two views of the chest were obtained. The heart size and pulmonary vascularity are within normal limits. The mediastinum is normal. No acute pulmonary abnormality is identified. There is no pneumothorax. The bony thorax is intact. IMPRESSION: No active cardiopulmonary disease. Reviewed, Interpreted and Dictated by Dane Welch III, MD Transcribed by Jennifer Bernard Authenticated and [facility]
== END ==
LOC: RAD 12:38
PROVIDERS: PCP Internal Medicine; Visit Provider Specialist
DX: D86.9 Sarcoidosis, unspecified (principal)
CPT/HCPCS: 71046

== ENCOUNTER → 2023-02-09 10:49 | Outpatient (CLI) | payer BC, SELFPAY ==
[2023-02-09 11:44] LABS: Basophils # 0.1 K/mm3 (0-0.2); Basophils % 0.6 % (0.1-2.0); Eosinophils # 0.2 K/mm3 (0.0-0.4); Eosinophils % 1.8 % (0.1-12.0); Hematocrit 37.9 % (37.0-47.0); Hemoglobin 12.6 g/dL (12.2-16.2); Lymphocytes # 2.3 K/mm3 (0.7-4.5); Lymphocytes % 24.3 % (10-50); Mean Corpuscular HGB Conc 33.3 g/dL (31.8-35.4); Mean Corpuscular Hemoglobin 26.8 pg (27.0-31.2); Mean Corpuscular Volume 80.5 fl (81-99); Mean Platelet Volume 8.2 fl (7.4-10.4); Monocytes # 0.5 K/mm3 (0.1-1.0); Monocytes % 5.1 % (1.7-9.3); Neutrophils # 6.4 K/mm3 (1.8-7.8); Neutrophils % 68.2 % (37.0-80.0); Platelet Count 314 K/mm3 (142-424); Red Blood Count 4.71 M/mm3 (4.20-5.40); Red Cell Distribution Width 15.1 % (11.5-17.5); White Blood Count 9.4 K/mm3 (4.8-10.8)
[2023-02-09 12:18] LABS: Alanine Aminotransferase 35 U/L (12-78); Albumin/Globulin Ratio 1.3 (1.1-1.8); Alkaline Phosphatase 55 U/L (38-126); Amylase 41 U/L (30-110); Aspartate Amino Transferase 33 U/L (14-36); Bilirubin,Total 0.4 mg/dl (0.2-1.3); Blood Urea Nitrogen 11 mg/dl (7-17); Calcium 9.1 mg/dl (8.4-10.2); Carbon Dioxide 28 mmol/L (22.0-30.0); Chloride 102 mmol/L (98-107); Estimated Glomerular Filt Rate 108 ml/min (>60); GFR (African American) 130 ML/MIN (>60); Globulin 3.1 g/dL (1.3-3.2); Glucose 109 mg/dl (74-100); Sodium 138 mmol/L (136-145); Total Protein,Serum 7.1 g/dl (6.3-8.2)
[2023-02-09 15:20] LABS: Anion Gap 11.6 mEq/L (5-15); Potassium 3.6 mmoL/L (3.5-5.1)
[2023-02-10 11:04] LABS: Prolactin 7.2 ng/mL (4.8-23.3)
== END ==
LOC: LAB 10:50
PROVIDERS: Internal Medicine; PCP Internal Medicine; Visit Provider Internal Medicine
DX: R10.13 Epigastric pain (principal); R11.0 Nausea
CPT/HCPCS: 36415; 80053; 82150; 84146; 85025

== ENCOUNTER → 2023-02-26 09:43 | Outpatient (CLI) | payer BC, SELFPAY ==
--- NOTE | 2023-02-26 09:50 | US_ITS ---
FINAL REPORT TECHNIQUE: Ultrasound images of the abdomen were obtained. CLINICAL HISTORY: EPIGASTRIC COMPARISON: 08/18/2022 FINDINGS: The pancreas is obscured by bowel gas. There is increased echogenicity of the liver parenchyma compatible with fatty infiltration of the liver. The gallbladder is unremarkable. The common duct is normal. The right kidney measures 12.1 cm in length and is normal in echogenicity without hydronephrosis. The left kidney measures 11.1 cm in length. There is a 3.5 cm exophytic lesion arising from the left kidney, that is slightly larger than noted on the previous ultrasound of August, and appears to show peripheral flow that was not seen on the prior ultrasound. The spleen is unremarkable. The aorta is normal in caliber. The vena cava is unremarkable. The anterior abdominal wall hernia noted on the prior ultrasound remains unchanged. IMPRESSION: There is a 3.5 cm exophytic lesion arising from the left kidney, larger than noted on the previous ultrasound of August, and appears to have peripheral flow not seen on the prior ultrasound. This is worrisome for an enlarging renal mass, and correlation with renal protocol CT is suggested for further evaluation. Fatty infiltration of the liver. Reviewed, Interpreted and Dictated by Kiran Worley MD Transcribed by Skylar Peterson Authenticated and [facility][1]
== END ==
LOC: RAD 09:44
PROVIDERS: PCP Internal Medicine; Visit Provider Internal Medicine
DX: R10.13 Epigastric pain (principal); R11.0 Nausea
CPT/HCPCS: 76700

== ENCOUNTER 2023-07-30 07:59 | Outpatient (CLI) | payer BC, SELFPAY ==
--- NOTE | 2023-07-30 08:02 | MM_ITS ---
PROCEDURE INFORMATION: Exam: MG Bilateral Screening 3D Mammography Exam date and time: 07/30/2023 7:53 AM Age: 47 years old Clinical indication: Screening examination TECHNIQUE: Imaging protocol: Bilateral Screening tomosynthesis and 2D mammography including computer-aided detection (CAD) when performed. COMPARISON: 1. MG MM DIG SCREENING MAMM BI W/CAD 07/27/2022 3:10 PM 2. MG MM DIG MAMM BI DX W/CAD 09/02/2020 2:08 PM FINDINGS: MAMMOGRAPHY: Breast composition: The breasts are heterogeneously dense, which may obscure small masses. Mass: None. Architectural distortion: None. Calcifications: No suspicious calcifications. Asymmetric density: None. Skin thickening: None. Axillary adenopathy: None. IMPRESSION: No mammographic evidence of malignancy. Annual screening is recommended unless otherwise clinically indicated. ASSESSMENT: BI-RADS Category 1: Negative
== END 2023-07-30 23:59 ==
LOC: RAD 08:00
PROVIDERS: PCP Internal Medicine; Visit Provider Internal Medicine
DX: Z12.31 Encounter for screening mammogram for malignant neoplasm of breast (principal)
CPT/HCPCS: 77063; 77067

== ENCOUNTER 2023-10-12 15:11 | Outpatient (CLI) | payer BC, SELFPAY ==
[2023-10-12 14:52] LABS: Basophils # 0.1 K/mm3 (0-0.2); Basophils % 0.7 % (0.1-2.0); Eosinophils # 0.4 K/mm3 (0.0-0.4); Eosinophils % 4.2 % (0.1-12.0); Hematocrit 35.6 % (37.0-47.0); Lymphocytes # 2.6 K/mm3 (0.7-4.5); Lymphocytes % 27.3 % (10-50); Mean Corpuscular HGB Conc 36.5 g/dL (31.8-35.4); Mean Corpuscular Hemoglobin 31.1 pg (27.0-31.2); Mean Corpuscular Volume 85.2 fl (81-99); Mean Platelet Volume 8.2 fl (7.4-10.4); Monocytes # 0.4 K/mm3 (0.1-1.0); Monocytes % 4.5 % (1.7-9.3); Neutrophils % 63.3 % (37.0-80.0); Platelet Count 355 K/mm3 (142-424); Red Blood Count 4.18 M/mm3 (4.20-5.40); Red Cell Distribution Width 14.4 % (11.5-17.5); White Blood Count 9.4 K/mm3 (4.8-10.8)
[2023-10-12 16:17] LABS: Alanine Aminotransferase 23 U/L (12-78); Albumin Level 4.3 g/dl (3.5-5.0); Albumin/Globulin Ratio 1.2 (1.1-1.8); Alkaline Phosphatase 68 U/L (38-126); Anion Gap 10.3 mEq/L (5-15); Aspartate Amino Transferase 26 U/L (14-36); Bilirubin,Total 0.5 mg/dl (0.2-1.3); Blood Urea Nitrogen 17 mg/dl (7-17); Calcium 9.8 mg/dl (8.4-10.2); Carbon Dioxide 27 mmol/L (22.0-30.0); Chloride 106 mmol/L (98-107); Chol/HDL Ratio 5.6 (1-3.5); Cholesterol 168 mg/dl (140-200); Estimated Glomerular Filt Rate 60 ml/min (>60); GFR (African American) 72 ML/MIN (>60); Globulin 3.5 g/dL (1.3-3.2); Glucose 99 mg/dl (74-100); HDL Cholesterol 30 mg/dl (40-60); Potassium 4.3 mmoL/L (3.5-5.1); Sodium 139 mmol/L (136-145); Total Protein,Serum 7.8 g/dl (6.3-8.2); Triglycerides 205 mg/dl (30-150); VLDL Cholesterol 41 mg/dL (0-40)
[2023-10-12 16:28] LABS: Direct LDL Cholesterol 97.48 mg/dL (100-129)
== END 2023-10-12 23:59 | disposition home or self-care (01) ==
LOC: LAB.DROPOF 15:11
PROVIDERS: PCP Internal Medicine; Visit Provider Internal Medicine
DX: E78.5 Hyperlipidemia, unspecified (principal); I10 Essential (primary) hypertension; Z87.891 Personal history of nicotine dependence
CPT/HCPCS: 80053; 80061; 85025

== ENCOUNTER 2023-11-25 17:13 | Emergency (ER) | payer BC, SELFPAY ==
--- NOTE | 2023-11-25 17:42 | ED_ITS ---
Discharge Plan Disposition Patient Disposition: Home, Self-Care Condition: Good Prescriptions Prescriptions: New azithromycin [Zithromax] 250 mg tablet 250 mg PO UD DOSE PK Qty: 6 0RF Rx Instructions: Take two (2) tablets today, then one (1) tablet days #2 thru #5 methylprednisolone 4 mg Tablets,Dose Pack 4 mg PO DIRECTED 6 Days Qty: 21 0RF Rx Instructions: Take 1 pack as directed for 6 days No Action bisoprolol fumarate 10 mg tablet 10 mg PO DAILY Qty: 90 0RF spironolactone 25 mg tablet 25 mg PO DAILY Qty: 90 0RF Ventolin HFA 90 mcg/actuation HFA aerosol inhaler 1 puff INHALATION Q6H PRN (Reason: lungs) Qty: 8 0RF amlodipine 10 mg tablet 10 mg PO BID Qty: 180 0RF Symbicort 160-4.5 mcg/actuation HFA aerosol inhaler 2 inh INHALATION DAILY PRN (Reason: lungs) Qty: 6 5RF Referrals Follow up/Referrals: Brent Coffey MD [Primary Care Provider] - See instructions Activity Restrictions/Add. Instructions Additional Instructions/Restrictions: Drink plenty of fluids. Take tylenol or ibuprofen for pain or fever. Take the medications as directed. Follow up with your regular doctor. GO TO THE ER FOR ANY WORSENING SYMPTOMS Clinical Impressions Clinical Impression: Otitis media Instructions Patient Instructions: Middle Ear Infection, Methylprednisolone, Azithromycin Print Language Print Language: Welsh Discharge ED Provider: Alan Aparicio [facility] HPI General Stated complaint: Ears stopped up,dizziness Time Seen by Provider: 11/25/23 17:42 Related Data Previous Rx's ?Medication ?Instructions ?Recorded bisoprolol fumarate 10 mg tablet 10 mg PO DAILY bp #90 tabs 02/19/22 spironolactone 25 mg tablet 25 mg PO DAILY Fluid #90 tabs 02/19/22 albuterol sulfate 90 mcg/actuation 1 puff inhalation Q6H PRN lungs #8 03/17/23 aerosol inhaler (Ventolin HFA) grams amlodipine 10 mg tablet 10 mg PO BID bp #180 tabs 03/17/23 budesonide-formoterol HFA 160 2 inh inhalation DAILY PRN lungs 09/16/23 mcg-4.5 mcg/actuation aerosol #6 grams inhaler (Symbicort) azithromycin 250 mg tablet 250 mg PO UD DOSE PK #6 tabs 11/25/23 (Zithromax) methylprednisolone 4 mg tablets in 4 mg PO DIRECTED 6 days #21 tabs 11/25/23 a dose pack Allergies Allergy/AdvReac Type Severity Reaction Status Date / Time amoxicillin [AMOXICILLIN] Allergy Unknown NERVOUS Verified 10/12/23 13:34 codeine [CODEINE] Allergy Unknown SKIN Verified 10/12/23 13:34 [facility] Disclaimer: The information contained in this section may have been updated after the patient was seen, as this information can be updated by other users. Medical History History of renal cell cancer Dyspnea on exertion Sarcoidosis of lung Chest pain Surgical History History of kidney surgery History of breast biopsy History of lithotripsy History of carpal tunnel surgery of right wrist Family History Other Alcoholism Asthma Cancer Heart attack Hypertension Stroke Social History Smoking Status: Former smoker smoking status stop date: 2013 second hand exposure: Yes alcohol intake: current alcohol intake frequency: holidays/special occasions only substance use type: denies use current occupational status: employed Travel in the last 8 weeks: None household members: none housing: house marital status: single 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 current occupational exposures/hazards: No caffeine: Yes ROS Obtained: Yes All systems reviewed & no additional complaints except as documented Constitutional Constitutional: Denies chills, Reports fever(s) and Reports poor appetite Eyes Eyes: Denies eye discharge ENT Ears, Nose, Mouth, and Throat: Denies ear discharge, Reports otalgia, Denies hearing loss, Denies sinus pain and Reports sore throat Cardiovascular Cardiovascular: Denies chest pain and Denies dyspnea Respiratory Respiratory: Denies chest congestion, Reports cough and Denies dyspnea Gastrointestinal Gastrointestingal: Denies abdominal pain, diarrhea, nausea or vomiting Musculoskeletal Musculoskeletal: Denies arthralgias Integumentary/Breasts Skin/Breast: Denies rash Physical Exam General General appearance: alert and in no apparent distress Head Head exam: atraumatic, normocephalic and normal inspection Eye Eye exam: Present normal appearance; Absent PERRL or EOMI ENT ENT exam: Present mucous membranes moist and normal external ear exam Expanded ENT Exam TM/Canal exam: Bilateral TM: erythema, bulging and effusion Nose exam: Absent sinus tenderness Nasal speculum exam: Bilateral: normal Mouth exam: Present normal external inspection and other; Absent drooling Teeth exam: Present normal inspection Throat exam: Present tonsillar erythema and tonsillomegaly Neck Neck exam: Present normal inspection, full ROM and trachea midline; Absent tenderness, meningismus or lymphadenopathy Chest Chest inspection: Present normal inspection and symmetric chest wall rise; Absent tenderness Respiratory Respiratory exam: Present normal lung sounds bilaterally; Absent respiratory distress, wheezes or stridor Cardiovascular Cardiovascular exam: Present regular rate, normal rhythm and normal heart sounds; Absent tachycardia or irregular rhythm Abdominal Exam Abdominal exam: Present soft and normal bowel sounds; Absent distention, tenderness, guarding, rebound or rigidity Extremities Exam Extremities exam: Present normal inspection and normal capillary refill; Absent tenderness, joint swelling or calf tenderness Back Exam Back exam: Present normal inspection and full ROM; Absent tenderness, CVA tenderness (R) or CVA tenderness (L) Neurological Exam Neurological exam: Present alert, oriented X3, CN II-XII intact, normal gait and reflexes normal; Absent motor sensory deficit Psychiatric Psychiatric exam: Present normal affect and normal mood Skin Skin exam: Present warm, dry, intact and normal color Lymphatic Lymphatic Findings: no adenopathy Medical Decision Making Medical Records Medical records reviewed: No I reviewed the patient's medical records. Jeremy Inquiry Pt receiving controlled substance: No
[2023-11-25 17:48] VITALS: BP 175/94; PULSE 78; RESP 20; TEMP 36.8; O2SAT 99; BMI 42.9
[2023-11-25 18:28] VITALS: BP 175/94; PULSE 78; RESP 18; TEMP 36.8; O2SAT 99
== END 2023-11-25 18:15 | disposition home or self-care (01) ==
PROVIDERS: Emergency Provider Nurse Practitioner Family; PCP Internal Medicine
DX: H66.93 Otitis media, unspecified, bilateral (principal); R42 Dizziness and giddiness
CPT/HCPCS: 99204; 99212; G0463

== ENCOUNTER 2024-01-20 08:55 | Day surgery (SDC) | payer BC, SELFPAY ==
[2024-01-18 14:59] VITALS: BMI 43.7
[2024-01-20] MEDS: LACTATED RINGERS 1000ML 1,000 ML 25 ML IV (09:11)
--- NOTE | 2024-01-20 09:11 | P.PNANES_ITS ---
[facility] Disclaimer: The information contained in this section may have been updated after the patient was seen, as this information can be updated by other users. Medical History History of renal cell cancer Dyspnea on exertion Sarcoidosis of lung Chest pain Surgical History History of kidney surgery History of breast biopsy History of lithotripsy History of carpal tunnel surgery of right wrist Family History Other Alcoholism Asthma Cancer Heart attack Hypertension Stroke Social History Smoking Status: Former smoker smoking status stop date: 2013 second hand exposure: Yes alcohol intake: never substance use type: denies use current occupational status: employed Travel in the last 8 weeks: None household members: none housing: house marital status: single 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 current occupational exposures/hazards: No caffeine: Yes [facility] Anesthesia Checklist Patient Identification Patient Identification: Arm Band and Verbal (Name & ) Structural Data Admitted From: Home Planned Operative Procedure/s: Colonoscopy Consent for Planned Operative Procedure(s) Verified: Yes Verified Documents: Surgical Consent and History and Physical NPO Status Verified Time NPO: 00:00 Chart Verification Results Verified: HCG Additional verifications Anesthesia Reactions: No Hx Blood Transfusions: No Blood Transfusion Reaction: No Neurological Assessment Level of Consciousness: Awake Hx Seizures: No Numbness or tingling in extremities: No Anesthesia Plan Anesthesia Risk discussed: Yes Anesthesia Plan: Verified ASA Class: III Anesthesia Type: MAC
[2024-01-20 09:13] VITALS: BP 149/89; PULSE 70; RESP 16; TEMP 36.5; O2SAT 97
[2024-01-20 09:19] LABS: Urine Pregnancy, HCG Qual. Negative (Negative)
[2024-01-20 09:52] VITALS: O2SAT 100
--- NOTE | 2024-01-20 10:12 | EXP.HP ---
History of Present Illness *Admission Date: 01/20/24 *Reason for visit:: Screening *History of present illness: Mrs. Nobles is a 48-year-old female who is here for screening colonoscopy. The examination is deemed medically necessary for colonoscopy. The patient has been seen, interviewed and examined prior to the procedure by both myself and the anesthesia provider. [facility] Disclaimer: The information contained in this section may have been updated after the patient was seen, as this information can be updated by other users. Medical History History of renal cell cancer Dyspnea on exertion Sarcoidosis of lung Chest pain Surgical History History of kidney surgery History of breast biopsy History of lithotripsy History of carpal tunnel surgery of right wrist Family History Other Alcoholism Asthma Cancer Heart attack Hypertension Stroke Social History Smoking Status: Former smoker smoking status stop date: 2013 second hand exposure: Yes alcohol intake: never substance use type: denies use current occupational status: employed Travel in the last 8 weeks: None household members: none housing: house marital status: single 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 current occupational exposures/hazards: No caffeine: Yes Other Medical History Have you received the Flu Vaccine for this season: No Have you received the Pneumonia Vaccine: Yes Review of Systems Review of Systems Review of systems (narrative): Negative *Cardiovascular Comments: Negative *Gastrointestinal Comments: Negative *Genitourinary Comments: Negative *Musculoskeletal Comments: Negative *Neurologic Comments: Negative Meds Home Medications and Allergies Home Medications ?Medication ?Instructions ?Recorded ?Confirmed ?Type spironolactone 25 mg tablet 25 mg PO DAILY Fluid #90 tabs 02/19/22 01/20/24 Rx albuterol sulfate 90 mcg/actuation 1 puff inhalation Q6H PRN lungs #8 03/17/23 01/20/24 Rx aerosol inhaler (Ventolin HFA) grams amlodipine 10 mg tablet 10 mg PO BID bp #180 tabs 03/17/23 01/20/24 Rx budesonide-formoterol HFA 160 2 inh inhalation DAILY PRN lungs 09/16/23 01/20/24 Rx mcg-4.5 mcg/actuation aerosol #6 grams inhaler (Symbicort) bisoprolol fumarate 10 mg tablet 10 mg PO DAILY bp #90 tabs 12/07/23 01/20/24 Rx cyclobenzaprine 5 mg tablet 5 mg PO TID PRN muscle spasm #30 01/19/24 01/20/24 Rx tabs prednisone 10 mg tablet 10 mg PO DIRECTED #32 tabs 01/19/24 01/20/24 Rx New Prescriptions to Start Prescriptions: Allergies Allergy/AdvReac Type Severity Reaction Status Date / Time amoxicillin [AMOXICILLIN] Allergy Unknown NERVOUS Verified 01/19/24 15:01 codeine [CODEINE] Allergy Unknown SKIN Verified 01/19/24 15:01 CRAWL Exam Data for Last 24 hours Vital signs and Labs for Last 24 Hours: Temp Pulse Resp BP Pulse Ox O2 Del Method O2 Flow Rate 97.7 F 70 16 149/89 H 97 Nasal Cannula 5 01/20/24 09:13 01/20/24 09:13 01/20/24 09:13 01/20/24 09:13 01/20/24 09:13 01/20/24 09:52 01/20/24 09:52 Laboratory Results - last 24 hr 01/20/24 09:00: Urine HCG, Qual Negative I & O for Last 24 hours: Intake & Output 01/17/24 01/18/24 01/19/24 01/20/24 23:59 23:59 23:59 23:59 Weight 255 lb *Routine HEENT Exam Head: Present normocephalic Eye: Present EOMI and PERRL ENT: Present mucous membranes moist *Routine Neck Exam Neck: Present supple *Routine Respiratory Exam Respiratory: Present CTA bilaterally *Routine Cardiovascular Exam Cardiovascular: Present RRR *Routine Abdominal Exam Abdominal: Present soft and normoactive bowel sounds; Absent tenderness *Routine Rectal Exam Rectal:: deferred *Routine Genitalia Exam Genitalia:: deferred *Routine Extremities Exam Extremities: Absent cyanosis, clubbing or edema *Routine Skin Exam Skin: Present warm; Absent rash *Routine Neurological Exam Neurological: Present alert and oriented X3 Assessment and Plan *Assessment and plan (1) Screening for colon cancer: Status: Acute Category: Medical Code(s): Z12.11 - Encounter for screening for malignant neoplasm of colon Plan A/P: 1. Screening for colon cancer is the preprocedural diagnosis. The patient will be anesthetized/sedated using MAC sedation. The patient has been seen and examined. Cardiac and lung assessment prior to the examination is stable. Proceed with planned colonoscopy
--- NOTE | 2024-01-20 10:29 | P.PCN_ITS ---
[facility] Procedure Note Date: 01/20/24 Time: 10:29 Procedure Note:: Colonoscopy Procedure Report: Colonoscopy with cold snare polypectomy Endoscopist: Danis Stevens II, MD Referring physician: Brent Coffey MD Date of Procedure: January 20, 2024 Equipment: Olympus 190 variable stiffness pediatric colonoscope Sedation: MAC sedation Indication: This is Giuliano is a 48-year-old female who is here for initial screening colonoscopy. She reports no rectal bleeding, weight loss or family h istory of colon cancer. She does have some chronic alternating irritable bowel syndrome with constipation alternating with diarrhea. She does get some gassiness and bloating. She does state that her father had diverticulitis. Procedure: Prior to the procedure, a history and physical exam was performed, and patient's medications and allergies were reviewed. The risks, benefits and alternatives of the sedation and procedure were discussed with the patient. All questions were answered and informed consent was obtained. The patient was brought to the procedure room. Patient identification and proposed procedure were verified by the physician and the nurse. The patient was placed in a left lateral decubitus position and the scope was passed under direct vision. Throughout the procedu re, the patient's blood pressure, pulse, and oxygen saturations were monitored continuously. The colonoscopy was accomplished without difficulty. The patient tolerated the procedure well. Findings: On digital rectal examination there was normal rectal tone. There were no external hemorrhoids. The colonoscope was introduced through the anal canal to the rectum and advanced to the cecum. The ileocecal valve and appendiceal orifice were identified. The scope was advanced a short distance into the ileum which appeared grossly normal. The scope was then withdrawn into the colon. There were 2 polyps (cecum x 1 (4 mm) and ascending x 1 (3 mm)) which were both removed via cold snare polypectomy and placed in the cecum formalin jar. The remaining cecum, ascending, transverse, descending, sigmoid and rectum were grossly normal. There were no mucosal abnormalities identified. Upon retroflexion within the rectum there were grade 1 internal hemorrhoids.The preparation was excellent throughout with [place] Preparation Score of 9. The cecal time was 12 minutes. Impression: 1. Diminutive colonic polyps x 2 2. Grade 1 internal hemorrhoids Plan: I will follow-up the polyp histology and if the polyps are adenomatous, I would valence colonoscopy again in 7 years. I would encourage psyllium fiber supplementation on a main an option for her IBS
[2024-01-20 10:31] VITALS: BP 148/72; PULSE 74; RESP 18; TEMP 36.8; O2SAT 95
[2024-01-20 10:41] VITALS: BP 122/70; PULSE 72; RESP 18; O2SAT 94
[2024-01-20 10:51] VITALS: BP 149/81; PULSE 65; RESP 18; O2SAT 99
[2024-01-20 11:18] VITALS: BP 129/76; PULSE 61; RESP 18; O2SAT 95
== END 2024-01-20 11:18 | disposition home or self-care (01) ==
PROVIDERS: PCP Internal Medicine; Visit Provider Internal Medicine Gastroenterology
PROC: (CPT 45385; principal; 2024-01-20 10:30)
DX: K63.5 Polyp of colon (principal); K58.2 Mixed irritable bowel syndrome; K64.0 First degree hemorrhoids; Z12.11 Encounter for screening for malignant neoplasm of colon
CPT/HCPCS: 45385; 81025; J7120

== ENCOUNTER 2024-03-07 12:05 | Outpatient (CLI) | payer BC, SELFPAY ==
[2024-03-07 12:54] LABS: Troponin I < 0.01 ng/ml (0.00-0.034)
== END 2024-03-07 23:59 | disposition home or self-care (01) ==
LOC: LAB.DROPOF 03-08 06:58
PROVIDERS: PCP Internal Medicine; Visit Provider Internal Medicine
DX: I10 Essential (primary) hypertension (principal); R07.9 Chest pain, unspecified
CPT/HCPCS: 84484

== ENCOUNTER 2024-05-12 10:24 | Emergency (ER) | payer BC, SELFPAY ==
[2024-05-12 10:25] VITALS: BP 202/92; PULSE 86; RESP 13; TEMP 36.9; O2SAT 95; BMI 35.2
[2024-05-12 10:32] VITALS: BP 217/110; PULSE 84; O2SAT 94
[2024-05-12 10:50] LABS: Coronavirus 19, PCR Not Detected (NotDetected); Influenza A, PCR Not Detected (NotDetected); Influenza B, PCR Not Detected (NotDetected)
--- NOTE | 2024-05-12 10:57 | ED_ITS ---
Discharge Plan Disposition Patient Disposition: Home, Self-Care Condition: Good Prescriptions Prescriptions: No Action spironolactone 25 mg tablet 25 mg PO DAILY Qty: 90 0RF amlodipine 10 mg tablet 10 mg PO BID Qty: 180 0RF Referrals Follow up/Referrals: Brent Coffey MD [Primary Care Provider] - See instructions Activity Restrictions/Add. Instructions Additional Instructions/Restrictions: You were seen and evaluated today for a headache which was treated with Toradol, Compazine and Benadryl. Your COVID and influenza swab was negative at this time. You are likely suffering from a different viral upper respiratory infection. Continue drinking adequate amounts of water and taking Tylenol every 6 hours. You can take Mucinex as it will not affect your high blood pressure. Please follow up with your primary care provider in 2-3 days. Please return to ED if your symptoms worsen, change in location, change in severity, new symptoms develop or if you become concerned for your health. Clinical Impressions Clinical Impression: Nasal congestion, Acute viral syndrome Nonintractable headache Qualifiers: Headache type: unspecified Headache chronicity pattern: acute headache Q ualified Code(s): R51.9 - Headache, unspecified Instructions Patient Instructions: DI for Headache Print Language Print Language: Algerian Discharge ED Provider: Monisha Pickett General Adult HPI General Chief complaint: Headache Stated complaint: chills, migraine, nausea Time Seen by Provider: 05/12/24 10:26 Mode of Arrival: Ambulatory Source of Information: Patient Limitations: No Limitations Description of Symptoms (Recalled from ER Triage Doc. by RN): pt presents to ED with c/o migraine, chills, nausea, vomitting. symptoms began last night around 7 pm. pt reports taking ubrelvy around midnight with no relief. migraine located on top of head with radiation into back of head. History of Present Illness HPI narrative: Patient is a 48-year-old female presenting with multiple complaints. Patient states yesterday she had a headache throughout the day that worsened in the evening. Patient states this was associated with nasal congestion with facial pressure, generalized unwell feeling and intermittent coughing due to postnasal drainage. Patient states she takes Wegovy and had a dose increase for which she took her first dose increase yesterday. Patient has history of hypertension and attempted to take her medication this morning but vomited afterwards. Patient has history of solitary kidney secondary to renal cancer. Patient also has history of sarcoidosis. Related Data Previous Rx's ?Medication ?Instructions ?Recorded spironolactone 25 mg tablet 25 mg PO DAILY Fluid #90 tabs 02/19/22 amlodipine 10 mg tablet 10 mg PO BID bp #180 tabs 03/17/23 Allergies Allergy/AdvReac Type Severity Reaction Status Date / Time amoxicillin (AMOXICILLIN) Allergy Unknown NERVOUS Verified 05/12/24 11:16 codeine (CODEINE) Allergy Unknown SKIN Verified 05/12/24 11:16 CRAWL [facility] Disclaimer: The information contained in this section may have been updated after the patient was seen, as this information can be updated by other users. Medical History History of renal cell cancer Dyspnea on exertion Sarcoidosis of lung Chest pain Surgical History History of kidney surgery History of breast biopsy History of lithotripsy History of carpal tunnel surgery of right wrist Family History Other Alcoholism Asthma Cancer Heart attack Hypertension Stroke Social History Smoking Status: Former smoker smoking status stop date: 2013 second hand exposure: Yes alcohol intake: never substance use type: denies use current occupational status: employed Travel in the last 8 weeks: None household members: none housing: house marital status: single 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 current occupational exposures/hazards: No caffeine: Yes Have you lived/traveled outside US in past 30 days?: No Contact w/someone who lives/traveled outside US past 30 days?: No Exposure to someone with infectious disease in past 14 days?: No Do you have a fever (greater than 100.4 F or 38 C)?: No Have you tested positive for COVID-19: No Exposed to someone with COVID-19 in past 14 days?: No Do you have a sore throat?: No Do you have a cough?: No Do you have any weakness?: No Do you have any diarrhea?: No Are you experiencing any unusual bleeding?: No Do you have any muscle aches/pain?: No Do you have any abdominal pain?: No Are you experiencing loss of taste or smell?: No Other Medical History Have you received the Flu Vaccine for this season: No Have you received the Pneumonia Vaccine: Yes ROS Obtained: Yes All systems reviewed & no additional complaints except as documented Physical Exam General General appearance: alert and in no apparent distress Head Head exam: atraumatic, normocephalic and normal inspection Eye Eye exam: Present normal appearance, PERRL and EOMI ENT ENT exam: Present normal exam, normal oropharynx, mucous membranes moist, TM's normal bilaterally and normal external ear exam Neck Neck exam: Present normal inspection, full ROM and trachea midline; Absent meningismus or lymphadenopathy Chest Chest inspection: Present normal inspection and symmetric chest wall rise; Absent tenderness Respiratory Respiratory exam: Present normal lung sounds bilaterally; Absent respiratory distress Cardiovascular Cardiovascular exam: Present regular rate and normal rhythm; Absent JVD Abdominal Exam Abdominal exam: Present soft and normal bowel sounds; Absent distention, tenderness or guarding Extremities Exam Extremities exam: Present normal inspection, full ROM and normal capillary refill; Absent calf tenderness Back Exam Back exam: Present normal inspection; Absent tenderness Neurological Exam Neurological exam: Present alert and oriented X3 Psychiatric Psychiatric exam: Present normal affect and normal mood Skin Skin exam: Present warm, dry, intact and normal color Lymphatic Lymphatic Findings: no adenopathy Medical Decision Making Medical Records Medical records reviewed: Yes I reviewed the patient's medical records. Screening: Per USPSTF and CDC recommendations, given the prevalence of disease in our region, it is our hospital?s policy to screen for HIV and viral Hepatitis for all patients aged 18 and over and those with ongoing risk factors. Jeremy Inquiry Pt receiving controlled substance: No Vital Signs: 05/12/24 10:25 05/12/24 10:32 05/12/24 11:04 Temperature 98.4 F Temperature Source Oral Pulse Rate 84 89 Pulse Rate [Left Radial] 86 Respiratory Rate 13 Blood Pressure 217/110 H 232/109 H Blood Pressure [Right Arm] 202/92 H Blood Pressure Mean 131 Blood Pressure Mean [Right Arm] 128 02 Sat by Pulse Oximetry 95 94 L 97 Oxygen Delivery Method Room Air Room Air Room Air 05/12/24 11:31 05/12/24 12:01 Temperature Temperature Source Pulse Rate 69 66 Pulse Rate [Left Radial] Respiratory Rate Blood Pressure 181/87 H 190/88 H Blood Pressure [Right Arm] Blood Pressure Mean Blood Pressure Mean [Right Arm] 02 Sat by Pulse Oximetry 100 97 Oxygen Delivery Method Room Air Room Air Lab Data Lab results reviewed: Yes I reviewed the patient's lab results. Lab Results 05/12/24 10:30: WBC 13.5 H, RBC 4.59, Hgb 11.9 L, Hct 36.8 L, MCV 80.2 L, MCH 25.9 L, MCHC 32.3, RDW 14.3, Plt Count 338, MPV 10.0, Neut % (Auto) 73.1, Lymph % (Auto) 18.2, Tyrrell % (Auto) 6.7, Eos % (Auto) 1.2, Baso % (Auto) 0.4, Neut # (Auto) 9.9 H, Lymph # (Auto) 2.5, Tyrrell # (Auto) 0.9, Eos # (Auto) 0.2, Baso # (Auto) 0.1, Sodium 138, Potassium 3.5, Chloride 99, Carbon Dioxide 31 H, Anion Gap 11.5, BUN 14, Creatinine 0.80, Estimated Creat Clear 128, Estimated GFR 77, Est GFR ( Amer) 93, Glucose 110 H, Calcium 9.4, HCV Ab KASEY w/Rflx PCR Qn Negative 05/12/24 10:46: SARS-CoV-2 (PCR) Not detected, Influenza A Untype (PCR) Not detected, Influenza Type B (PCR) Not detected 05/12/24 10:30 05/12/24 10:30 Orders (Tests/Meds): ED MEDICATIONS Discontinued Medications Generic Name Dose Route Start Last Admin Trade Name Freq PRN Reason Stop Dose Admin Diphenhydramine HCl 25 mg 05/12/24 11:33 05/12/24 11:40 Diphenhydramine 50mg/Ml Vial IV 05/12/24 11:34 25 mg ONCE ONE Administration Lactated Ringer's 500 mls @ 999 mls/hr 05/12/24 10:41 05/12/24 11:27 Lactated Ringer's 500ml IV 05/12/24 11:11 999 mls/hr .Q31M ONE Administration Ketorolac Tromethamine 15 mg 05/12/24 11:33 05/12/24 11:40 Ketorolac 30mg/Ml Vial IV 05/12/24 11:34 15 mg ONCE ONE Administration Prochlorperazine Edisylate 10 mg 05/12/24 11:33 05/12/24 11:40 Prochlorperazine 10mg/2ml Vial IV 05/12/24 11:34 10 mg ONCE ONE Administration ORDERS Category Date Time Status BMP [Basic Metabolic Panel] Stat Lab 05/12/24 10:30 Completed CBC w/Auto Diff [Complete Blood Count Auto Diff] Stat Lab 05/12/24 10:30 Completed HIV Combo Stat Lab 05/12/24 10:30 Received Hepatitis C Ab Qual. W/ RFX Stat Lab 05/12/24 10:30 Completed Rapid PCR Covid and Flu A/B Stat Lab 05/12/24 10:46 Completed Medical Decision Narrative: In summary, patient is a 48-year-old female presenting with multiple complaints. Patient has a medical history consisting of hypertension, sarcoidosis, solitary kidney secondary to RCC. Patient's symptoms developed yesterday with a mild headache that progressed and includes nasal congestion, nausea and intermittent coughing. Differential diagnosis includes but is not limited to, URI, sinusitis, migraine, pneumonia, gastroenteritis, among others. Initial evaluation of the patient will consist of CBC, BMP, COVID/flu swab. Will initiate therapy with IV fluids until BMP results for renal function. If adequate renal function is present, will determine medications utilized and a migraine cocktail. Evaluation of patient's labs significant for slight leukocytosis at 13.5, hemoglobin 11.9 and no thrombocytopenia. Patient CMP nonactionable with normal renal function. COVID/flu negative. Patient treated with Toradol, Compazine and Benadryl for a migraine cocktail in addition to the IV fluids that were already started. On reevaluation, patient states headache is resolved and she is feeling significantly improved. I discussed symptomatic management at home after given the patient the results of her workup. Patient advised to continue taking Tylenol every 6 hours, drinking adequate amounts of water and using Mucinex for her nasal congestion as needed.Patient also advised to follow-up with her PCP. Patient agreement with this plan. Monisha Pickett MD Critical Care Critical Care Time Critical Care Time: No
[2024-05-12 11:04] VITALS: BP 232/109; PULSE 89; O2SAT 97
[2024-05-12 11:07] LABS: Basophils # 0.1 K/mm3 (0-0.2); Basophils % 0.4 % (0.1-2.0); Eosinophils # 0.2 K/mm3 (0.0-0.4); Eosinophils % 1.2 % (0.1-12.0); Hematocrit 36.8 % (37.0-47.0); Hemoglobin 11.9 g/dL (12.2-16.2); Lymphocytes # 2.5 K/mm3 (0.7-4.5); Lymphocytes % 18.2 % (10-50); Mean Corpuscular HGB Conc 32.3 g/dL (31.8-35.4); Mean Corpuscular Hemoglobin 25.9 pg (27.0-31.2); Mean Corpuscular Volume 80.2 fl (81-99); Monocytes # 0.9 K/mm3 (0.1-1.0); Monocytes % 6.7 % (1.7-9.3); Neutrophils # 9.9 K/mm3 (1.8-7.8); Neutrophils % 73.1 % (37.0-80.0); Platelet Count 338 K/mm3 (142-424); Red Blood Count 4.59 M/mm3 (4.20-5.40); Red Cell Distribution Width 14.3 % (11.5-17.5); White Blood Count 13.5 K/mm3 (4.8-10.8)
--- NOTE | 2024-05-12 11:11 | PC.NURSE ---
water given to pt, no other needs at this time.
[2024-05-12] MEDS: RINGERS SOLUTION,LACTATED 500 ML 999 ML IV (11:27)
[2024-05-12 11:28] LABS: Anion Gap 11.5 mEq/L (5-15); Blood Urea Nitrogen 14 mg/dl (7-17); Calcium 9.4 mg/dl (8.4-10.2); Carbon Dioxide 31 mmol/L (22.0-30.0); Chloride 99 mmol/L (98-107); Creatinine Clearance Estimated 128 mL/min (50-200); Estimated Glomerular Filt Rate 77 ml/min (>60); GFR (African American) 93 ML/MIN (>60); Glucose 110 mg/dl (74-100); Potassium 3.5 mmoL/L (3.5-5.1); Sodium 138 mmol/L (136-145)
--- NOTE | 2024-05-12 11:30 | PC.NURSE ---
ROUNDED ON PT, RESTING WITH EYES CLOSED. UPDATED ON POC. NO NEEDS AT THIS TIME. CALL LIGHT WITHIN REACH
[2024-05-12 11:31] VITALS: BP 181/87; PULSE 69; O2SAT 100
[2024-05-12] MEDS: PROCHLORPERAZINE 10MG/2ML VIAL 10 MG IV (11:40)
[2024-05-12] MEDS: KETOROLAC 30MG/ML VIAL 15 MG IV (11:40)
[2024-05-12] MEDS: diphenhydrAMINE 50MG/ML VIAL 25 MG IV (11:40)
--- NOTE | 2024-05-12 11:43 | PC.NURSE ---
rounded on pt at this time, pt provided warm blanket at this time.
--- NOTE | 2024-05-12 11:52 | PC.NURSE ---
Pt IV fluids bags empty, pt unhooked from Iv to go to restroom.
[2024-05-12 12:01] VITALS: BP 190/88; PULSE 66; O2SAT 97
[2024-05-12 12:16] LABS: Hepatitis C Ab Qual. W/ RFX NEGATIVE (Negative)
[2024-05-12 12:43] VITALS: BP 201/96; PULSE 87; RESP 18; TEMP 36.9; O2SAT 100
[2024-05-12 13:14] LABS: HIV Combo NEGATIVE (Negative)
== END 2024-05-12 12:44 | disposition home or self-care (01) ==
PROVIDERS: Emergency Provider Student in an Organized Health Care Education/Training Program; PCP Internal Medicine
DX: B34.9 Viral infection, unspecified (principal); R51.9 Headache, unspecified; R11.2 Nausea with vomiting, unspecified; R09.81 Nasal congestion; R05.9 Cough, unspecified; R68.83 Chills (without fever); Z87.891 Personal history of nicotine dependence
CPT/HCPCS: 80048; 85025; 86803; 87389; 87636; 96361; 96374; 96375; 99283; J0780; J1200; J1885; J7120

== ENCOUNTER 2024-07-06 15:07 | Outpatient (CLI) | payer BC, SELFPAY ==
[2024-07-06 15:14] LABS: Basophils # 0.1 K/mm3 (0-0.2); Basophils % 0.5 % (0.1-2.0); Eosinophils # 0.2 K/mm3 (0.0-0.4); Hematocrit 34.8 % (37.0-47.0); Lymphocytes # 2.4 K/mm3 (0.7-4.5); Lymphocytes % 23.6 % (10-50); Mean Corpuscular HGB Conc 31.6 g/dL (31.8-35.4); Mean Corpuscular Hemoglobin 26.8 pg (27.0-31.2); Mean Corpuscular Volume 84.9 fl (81-99); Mean Platelet Volume 10.4 fl (7.4-10.4); Monocytes # 0.7 K/mm3 (0.1-1.0); Monocytes % 6.5 % (1.7-9.3); Neutrophils # 6.9 K/mm3 (1.8-7.8); Neutrophils % 66.9 % (37.0-80.0); Platelet Count 343 K/mm3 (142-424); Red Cell Distribution Width 14.6 % (11.5-17.5); White Blood Count 10.3 K/mm3 (4.8-10.8)
[2024-07-06 15:26] LABS: Albumin Level 4.2 g/dl (3.5-5.0); Chloride 101 mmol/L (98-107); Sodium 138 mmol/L (136-145)
[2024-07-06 15:27] LABS: Potassium 3.7 mmoL/L (3.5-5.1)
[2024-07-06 15:29] LABS: Alanine Aminotransferase 23 U/L (12-78); Albumin/Globulin Ratio 1.3 (1.1-1.8); Alkaline Phosphatase 65 U/L (38-126); Anion Gap 13.7 mEq/L (5-15); Aspartate Amino Transferase 27 U/L (14-36); Bilirubin,Total 0.4 mg/dl (0.2-1.3); Blood Urea Nitrogen 14 mg/dl (7-17); Carbon Dioxide 27 mmol/L (22.0-30.0); Cholesterol 145 mg/dl (140-200); Estimated Glomerular Filt Rate 67 ml/min (>60); GFR (African American) 81 ML/MIN (>60); Globulin 3.2 g/dL (1.3-3.2); Total Protein,Serum 7.4 g/dl (6.3-8.2); Triglycerides 230 mg/dl (30-150); VLDL Cholesterol 46 mg/dL (0-40)
[2024-07-06 15:30] LABS: Calcium 9.5 mg/dl (8.4-10.2); Chol/HDL Ratio 5.4 (1-3.5); Glucose 77 mg/dl (74-100); HDL Cholesterol 27 mg/dl (40-60)
[2024-07-06 15:41] LABS: Direct LDL Cholesterol 73.67 mg/dL (100-129)
[2024-07-07 06:33] LABS: Prolactin 10.3 ng/mL (4.8-33.4)
== END 2024-07-06 23:59 | disposition home or self-care (01) ==
LOC: LAB.DROPOF 15:07
PROVIDERS: PCP Internal Medicine; Visit Provider Internal Medicine
DX: I10 Essential (primary) hypertension (principal); D35.2 Benign neoplasm of pituitary gland; E22.1 Hyperprolactinemia; E78.5 Hyperlipidemia, unspecified; Z85.528 Personal history of other malignant neoplasm of kidney
CPT/HCPCS: 80053; 80061; 84146; 85025

== ENCOUNTER 2024-10-10 12:47 | Outpatient (CLI) | payer BC, SELFPAY ==
--- OUTSIDE RECORDS SUMMARY | 2024-10-10 12:49 | XMS_ITS | Clinical Summary ---
Author Organization [facility] Address [address] [place] [address] Care Team Providers Care Web Applications Developer Name Role Phone Brent Coffey MD Primary Care Provider [phone] Ellie Tanner GEOGRAPHY DEPARTMENT CHAIR Unavailable Allergies Active Allergy Reactions Criticality Noted Date Comments Amoxicillin Shortness of breath High 10/30/2020 Codeine Hives,Itching Medium 10/30/2020 Medications omeprazole (PriLOSEC) [address] capsule Take 20 mg by mouth 1 (one) time each day. 08/06/2020 Active spironolactone (Aldactone) 50 MG tablet Take 25 mg by mouth 1 (one) time each day. 05/31/2020 Active bisoprolol (Zebeta) 10 MG tablet Take 20 mg by mouth 1 (one) time each day. Active lisinopril-hydro CHLOROthiazide 20-12.5 MG tablet Take 1 tablet by mouth 2 (two) times a day. Active amLODIPine (Norvasc) 5 MG tablet Take 10 mg by mouth 2 (two) times a day. Active Active Problems No known active problems Family History Medical History Relation Name Comments Lung cancer Mother's Brother 1 Lung cancer Mother's Brother 2 Lung cancer Mother's Brother 3 Breast cancer Mother's Sister Relation Name Status Comments Mother's Brother 1 Mother's Brother 2 Mother's Brother 3 Mother's Sister Social History Tobacco Use Types Packs/Day Years Used Date Smoking Tobacco: Former Cigarettes Smokeless Tobacco: Never Alcohol Use Standard Drinks/Week Comments Never 0 (1 standard drink = 0.6 oz pur e alcohol) Comments No Sex and Gender Information Value Date Recorded Sex Assigned at Not on file Legal Sex Female 10:43 AM EDT Gender Identity Not on file Sexual Orientation Not on file Last Filed Vital Signs Vital Sign Reading Time Taken Comments Blood Pressure 177/99 03/17/2021 2:08 PM EST Pulse 76 03/17/2021 2:08 PM EST Temperature 36.7 C (98 F) 03/17/2021 2:08 PM EST Respiratory Rate 20 03/17/2021 2:08 PM EST Oxygen Saturation - - Inhaled Oxygen Concentration - - Weight 107 kg (235 lb 10.8 oz) 03/17/2021 2:08 P M EST Height 162.6 cm (5' 4 ) 03/17/2021 12:18 PM EST Body Mass Index 40.45 03/17/2021 12:18 PM EST Plan of Treatment Health Maintenance Due Date Last Done Comments [facility]-Depression Screening 1976 [facility]-/Child/Adol SDOH Screenings 1976 [facility]- SDOH Screenings 1994 [facility]-Adult SDOH Screenings 1994 [facility]-DTaP,Tdap,and Td Vaccine s (1 - Tdap) 10/18/1995 [facility]-Pap Smear 1997 [facility]-Cervical Cancer Screening 2006 [facility]-HPV/Cotest 2006 CT Colonography 2021 Colonoscopy 2021 FIT-DNA 2021 FIT 2021 FOBT 2021 Sigmoidoscopy 2021 [facility]-Colorectal Cancer Screening 2021 [id number] Vaccine ( season) 2023 02/22/2021, 07/13/2020 [facility]-Influenza Vaccine ([place] n Ended) 2024 [facility]-Zoster Vaccines (1 of 2) 2026 [facility]-Hepatitis B Vaccines Completed 000, 06/18/1999, 05/14/1999 HPV Vaccines Aged Out No longer eligi ble based on patient's age to complete this topic [facility]-HIB Vaccines Aged Out No longer e ligible based on patient's age to complete this topic [facility]-Hepatitis A Vaccines Aged Out No longer eligible based on patient's age to complete this topic [facility]-IPV Vaccines Aged Out No longer e ligible based on patient's age to complete this topic [facility]-Pneumococcal Vaccine: Pediatrics (0 to 5 Years) and At-Risk Patients (6 to 49 Years) Aged Out No longer eligible b ased on patient's age to complete this topic [facility]-Rotavirus Vaccines Aged Out No lo nger eligible based on patient's age to complete [place] [address] Care Teams Web Applications Developer Relationship Specialty Start Date End Date Brent Coffey MD [facility] [address] [place] [address] PCP - General 10/30/20 Ellie Tanner APRN [address] [place] [phone] Nurse Practitioner General Surgery 03/17/21
--- OUTSIDE RECORDS SUMMARY | 2024-10-10 12:49 | XMS_ITS | Referral Summary ---
Author Organization [employer] ([place], [place], [place], [place]) Address [address] [place] [address] Care Team Providers Care Agile Developer Name Role Phone Brent Coffey MD Primary Care Provider [phone] Allergies Active Allergy Reactions Criticality Noted Date Comments Amoxicillin Itching Medium 04/26/2023 Codeine Itching Medium 04/26/2023 Medications budesonide-form oteroL (SYMBICORT) 160-4.5 mcg/actuation inhaler Daily 04/15/2022 Active albuterol HFA (VENTOLIN HFA) 90 mcg/actuation inhaler 1 puff every 6 (six) hours as needed. 03/17/2023 Active amLODIPine (NORVASC) 10 MG tablet Take 1 tablet (10 mg total) by mouth 2 (two) times daily. 03/17/2023 Active bisoprolol (ZEBETA) 10 MG tablet Take 1 tablet (10 mg total) by mouth daily. Active cabergoline (DOSTINEX) 0.5 mg tablet 12/24/2022 Active omeprazole (PriLOSEC) 20 MG capsule Take 1 capsule (20 mg total) by mouth daily. Active spironolactone (ALDACTONE) 25 MG tablet Take 1 tablet (25 mg total) by mouth daily. Active valsartan-hydro chlorothiazide (DIOVAN-HCT) 160-12.5 mg per tablet Take 1 tablet by mouth daily. 07/13/2022 Active doxycycline (VIBRA-TABS) 100 MG tablet Take 1 tablet (100 mg total) by mouth 2 (two) times daily. 6 tablet 05/04/2023 Active Active Problems Problem Noted Date Diagnosed Date Acute kidney injury (PUMA) with acute tubular nec rosis (ATN) 05/05/2023 Leukocytosis 05/05/2023 Hypertension 05/04/2023 Arthritis 05/04/2023 Class 3 severe obesity in adult 05/04/2023 Left renal mass 05/04/2023 S/p robotic assisted laparos copic left radical nephrectomy with adrenalectomy and the intraoperative ultrasound 05/04/2023 Preop examination 04/26/2023 Pulmonary sarcoidosis 04/26/2023 Left renal mass 04/26/2023 Asthma 04/26/2023 UMA on CPAP 04/26/2023 Hyperprolactinemia 04/26/2023 Sarcoidosis Obstructive sleep apnea Social History Tobacco Use Types Packs/Day Years Used Date Smoking Tobacco: Former Cigarettes Passive Smoke Exposure: Past Tobacco Cessation:Counseling Given: Not Answered Comments:PT STATES SHE QUIT 01/2014 PRAPARE - Transportation Answer Date Re corded In the past 12 months, has l ack of transportation kept you from medical appointments or from getting medications? No 05/04/2023 Lack of Transportation (Non-Medical) Not on file 05/04/2023 Food Insecurity Answer Date Recorded Food run out past 12 months Not on file 04/12 Food did not last past 12 months Not on file 04/22/2023 Employment Answer Date Recorded Help finding and keeping a job Not on file 0 04/22/2023 Family and Community Support Answer Aikra e Recorded Help with Day to Day Activities Not on file 04/22/2023 Feeling Lonely or Isolated Not on file 04/22 Educational Attainment Answer Date Eliazar rded Speak language other than Amharic at home Not on file 04/22/2023 Want help with school or training Not on file 04/22/2023 Substance Use Answer Date Recorded Used prescription meds for non-medical reasons N ot on file 04/22/2023 Used illegal drugs past 12 months Not on file 04/22/2023 Comments No Sex and Gender Information Value Date Recorded Sex Assigned at Female 05/04/2023 2:22 PM REFRIGERATION ENGINE OPERATOR Legal Sex Female 8:51 AM REFRIGERATION ENGINE OPERATOR Gender Identity Female 05/04/2023 2:22 PM REFRIGERATION ENGINE OPERATOR Sexual Orientation Not on file Last Filed Vital Signs Vital Sign Reading Time Taken Comments Blood Pressure 130/58 05/06/2023 9:32 AM EST Pulse 67 05/06/2023 9:32 AM EST Temperature 36.7 C (98.1 F) 05/06/2023 9:32 AM EST Respiratory Rate 18 05/06/2023 5:30 AM EST Oxygen Saturation 98% 05/06/2023 9:47 AM EST Inhaled Oxygen Concentration - - Weight 110.7 kg (244 lb) 05/04/2023 8:00 AM EST Height 162.6 cm (5' 4 ) 05/04/2023 8:00 AM EST Body Mass Index 41.88 05/04/2023 8:00 AM EST Plan of Treatment Not on file Insurance BLUE CROSS/BLUE SHIELD Advance Directives For more information, please contact: [phone] Documents on File Type Date Recorded Patient Log Handler Expl anation Advance Directives and Living Will 05/04/2023 Care Teams Agile Developer Relationship Specialty Start Date End Date Brent Coffey MD [address] [place] [address] [place] [address] PCP - General General Internal Medicine 04/23/23
--- OUTSIDE RECORDS SUMMARY | 2024-10-10 12:49 | XMS_ITS | Clinical Summary ---
Author Organization [employer] ([place], [place], [place], [place]) Address [address] [place] [address] Care Team Providers Care Business Account Executive Name Role Phone Brent Coffey MD Primary Care Provider [phone] Allergies Active Allergy Reactions Criticality Noted Date [...] 0 04/22/2023 Family and Community Support Answer Akira e Recorded Help with Day to Day Activities Not on file 04/22/2023 Feeling Lonely or Isolated Not on file 04/22 Educational Attainment Answer Date Eliazar rded Speak language other than Georgian at home Not on file 04/22/2023 Want help with school or training Not on file 04/22/2023 Substance Use Answer Date Recorded Used prescription meds for non-medical reasons N ot on file 04/22/2023 Used illegal drugs past 12 months Not on file 04/22/2023 Comments No Sex and Gender Information Value Date Recorded Sex Assigned at Female 05/04/2023 2:22 PM HOOD MAKER Legal Sex Female 8:51 AM HOOD MAKER Gender Identity Female 05/04/2023 2:22 PM HOOD MAKER Sexual Orientation Not on file Last Filed [...] 05/04/2023 8:00 AM EST Plan of Treatment Health Maintenance Due Date Last Done Comments CT Colonography 1976 Colonoscopy 1976 Colorectal Cancer Screening 1976 FOBT/FIT 1976 Fit-DNA (Cologuard) 1976 Sigmoidoscopy 1976 Depression Screening (12+) 1988 Tobacco Cessation Counseling and Screening (12+) 1988 HIV Screening 10/18/1991 Hepatitis C Screening 1994 DTAP/TDAP/TD VACCINES (1 - Tdap) 10/18/1995 Pneumococcal Vaccine: 0-49 Y ears (1 of 2 - PCV) 10/18/1995 Pap Smear 1997 Lipid Panel 2021 Breast Cancer Screening 03/17/2023 03/17/2021, 10/30 COVID-19 VACCINE ( - season) 2023, 07/13/2020 Influenza Vaccine (Season Ended) 2024 01/08/20 23 Insurance BLUE CROSS/BLUE SHIELD Advance Directives For more information, please contact: [phone] Documents on File Type Date Recorded Patient Pourer Expl anation Advance Directives and Living Will 05/04/2023 Care Teams Business Account Executive Relationship Specialty Start Date End Date Brent Coffey MD [address] [place] [address] PCP - General General Internal Medicine 04/23/23
--- NOTE | 2024-10-10 13:00 | MM_ITS ---
PROCEDURE INFORMATION: Exam: MG Bilateral Screening 3D Mammography Exam date and time: 10/10/2024 12:58 PM Age: 48 years old Clinical indication: Screening examination. Family history of breast cancer in patient's mother and grandmother. TECHNIQUE: Imaging protocol: Bilateral Screening tomosynthesis and 2D mammography including computer-aided detection (CAD) when performed. COMPARISON: 1. MG MM DIG SCREENING MAMM BI W/CAD 07/30/2023 7:53 AM 2. MG MM DIG SCREENING MAMM BI W/CAD 07/27/2022 3:10 PM FINDINGS: MAMMOGRAPHY: Breast composition: The breasts are heterogeneously dense, which may obscure small masses. Mass: No suspicious masses. Architectural distortion: Postsurgical changes redemonstrated right breast. Calcifications: No suspicious calcifications. Asymmetric density: None. Skin thickening: None. Axillary adenopathy: None. IMPRESSION: No mammographic evidence of malignancy. Annual screening is recommended unless otherwise clinically indicated. ASSESSMENT: BI-RADS Category 2: Benign.
== END 2024-10-10 23:59 | disposition home or self-care (01) ==
LOC: RAD 12:47
PROVIDERS: PCP Internal Medicine; Visit Provider Internal Medicine
DX: Z12.31 Encounter for screening mammogram for malignant neoplasm of breast (principal); R92.333 Mammographic heterogeneous density, bilateral breasts; Z98.890 Other specified postprocedural states; Z80.3 Family history of malignant neoplasm of breast
CPT/HCPCS: 77063; 77067

== ENCOUNTER 2024-11-07 14:52 | Outpatient (CLI) | payer BC, SELFPAY ==
[2024-11-07 17:39] LABS: Hematocrit 35.9 % (37.0-47.0); Hemoglobin 11.4 g/dL (12.2-16.2); Immature Granulocytes % 0.2 %; Mean Corpuscular HGB Conc 31.8 g/dL (31.8-35.4); Mean Corpuscular Hemoglobin 26.4 pg (27.0-31.2); Mean Corpuscular Volume 83.1 fl (81-99); Nucleated Red Blood Cells % 0 %; Platelet Count 363 K/mm3 (142-424); Red Blood Count 4.32 M/mm3 (4.20-5.40); Red Cell Distribution Width-SD 49.0 fL; White Blood Count 9.3 K/mm3 (4.8-10.8)
[2024-11-07 18:32] LABS: Albumin Level 3.5 g/dl (3.5-5.0); Chloride 101 mmol/L (98-107); Sodium 135 mmol/L (136-145)
[2024-11-07 18:33] LABS: Potassium 4.3 mmoL/L (3.5-5.1)
[2024-11-07 18:35] LABS: Alanine Aminotransferase 17 U/L (12-78); Albumin/Globulin Ratio 0.9 (1.1-1.8); Alkaline Phosphatase 62 U/L (38-126); Anion Gap 9.3 mEq/L (5-15); Aspartate Amino Transferase 25 U/L (14-36); Bilirubin,Total 0.3 mg/dl (0.2-1.3); Blood Urea Nitrogen 14 mg/dl (7-17); Carbon Dioxide 29 mmol/L (22.0-30.0); Creatinine,Serum 0.90 mg/dl (0.52-1.04); Estimated Glomerular Filt Rate 67 ml/min (>60); GFR (African American) 81 ML/MIN (>60); Globulin 3.8 g/dL (1.3-3.2); Total Protein,Serum 7.3 g/dl (6.3-8.2)
[2024-11-07 18:36] LABS: Calcium 9.6 mg/dl (8.4-10.2); Glucose 82 mg/dl (74-100); Iron 48 ug/dL (37-170)
[2024-11-07 18:45] LABS: Total Iron Binding Capacity 285 ug/dL (265-497)
--- OUTSIDE RECORDS SUMMARY | 2024-11-08 11:15 | XMS_ITS | Clinical Summary ---
Author Organization [employer] ([place], [place], [place], [place]) Address [address] [place] [address] Care Team Providers Care Environmental Education Specialist Name Role Phone Brent Coffey MD Primary Care Provider [phone] Allergies Active Allergy Reactions Criticality Noted Date [...] Date Eliazar rded Speak language other than Dominican at home Not on file 04/22/2023 Want help with school or training Not on file 04/22/2023 Substance Use Answer Date Recorded Used prescription meds for non-medical reasons N ot on file 04/22/2023 Used illegal drugs past 12 months Not on file 04/22/2023 Comments No Sex and Gender Information Value Date Recorded Sex Assigned at Female 05/04/2023 2:22 PM SUPERVISOR TWISTING DEPARTMENT Legal Sex Female 8:51 AM SUPERVISOR TWISTING DEPARTMENT Gender Identity Female 05/04/2023 2:22 PM SUPERVISOR TWISTING DEPARTMENT Sexual Orientation Not on file Last Filed [...] ( - season) 2023, 07/13/2020 Influenza Vaccine (#1) 2024 01/07/2023 Insurance BLUE CROSS/BLUE SHIELD Advance Directives For more information, please contact: [phone] Documents on File Type Date Recorded Patient Android Framework Developer Expl anation Advance Directives and Living Will 05/04/2023 Care Teams Environmental Education Specialist Relationship Specialty Start Date End Date Brent Coffey MD [address] [place] [address] PCP - General General Internal Medicine 04/23/23
--- OUTSIDE RECORDS SUMMARY | 2024-11-08 11:16 | XMS_ITS | Clinical Summary ---
Author Organization [facility] Address [address] [place] [address] Care Team Providers Care Grips Name Role Phone Brnet Coffey MD Primary Care Provider Ellie Tanner POOL INSTALLER Unavailable [phone] Allergies Active Allergy Reactions Criticality Noted Date [...] 2021 Sigmoidoscopy 2021 [facility]-Colorectal Cancer Screening 2021 [id number] Vaccine ( season) 2023 02/22/2021, 07/13/2020 [facility]-Influenza Vaccine (#1) 2024 [facility]Y-Zoster Vaccines (1 of 2) 2026 [...] patient's age to complete this topic Insurance Care Teams Grips Relationship Specialty Start Date End Date Brent Coffey MD [address] [place] [address] PCP - General 10/30/20 Ellie Tanner APRN [address] [place] [phone] Nurse Practitioner General Surgery 03/17/21
--- OUTSIDE RECORDS SUMMARY | 2024-11-08 11:16 | XMS_ITS | Clinical Summary ---
Author Organization [facility] Address [address] [place] [address] Care Team Providers Care Senior Design Engineer Name Role Phone Brent Coffey MD Primary Care Provider [phone] Allergies Active Allergy Reactions Criticality Noted Date Comments Amoxicillin Other (See Comments) High 12/22/2022 Anxious feeling Codeine Other (See Comments) High 12/22/2022 Feels like something is crawling on her Medications albuterol sulfate HFA 108 (90 Base) MCG/ACT inhaler Inhale 2 puffs Every 4 (Four) Hours As Needed for Wheezing. Active amLODIPine (NORVASC) 10 MG tablet Take 1 tablet by mouth 2 (Two) Times a Day. Active bisoprolol (ZEBeta) 10 MG tablet Take 1 tablet by mouth Daily. Active budesonide-formo terol (SYMBICORT) 160-4.5 MCG/ACT inhaler Inhale 2 puffs Daily As Needed. Active omeprazole (priLOSEC) 20 MG capsule Take 1 capsule by mouth Daily. Active Rimegepant Sulfate (Nurtec) 75 MG tablet dispersible tablet Take by mouth Daily As Needed. Active spironolactone (ALDACTONE) 25 MG tablet Take 1 tablet by mouth Daily. Active valsartan-hydroc hlorothiazide (DIOVAN-HCT) 160-12.5 MG per tablet Take 1 tablet by mouth Daily. Active cabergoline (DOSTINEX) 0.5 MG tablet Take 0.5 tablets by mouth 2 (Two) Times a Week. 8 tablet 3 12/24/2022 Active Family History Medical History Relation Name Comments Diverticulitis Father Diabetes Mother pre dm Hyperlipidemia Mother Relation Name Status Comments Brother Alive Father Alive Mother Alive Social History Tobacco Use Types Packs/Day Years Used Date Smoking Tobacco: Former Cigarettes Q uit: 2013 Smokeless Tobacco: Never Alcohol Use Standard Drinks/Week Comments Never 0 (1 standard drink = 0.6 oz pur e alcohol) Abuse Screen Answer Date Recorded Unsafe at Home or Work/School Not on file Feels Threatened by Someone? Not on file 12/2022 Does Anyone Keep You from Co ntacting Others or Doint Things Outside the Home? Not on file 01/18/2023 Physical Sign of Abuse Present Not on file 1 Housing Stability Answer Date Recorded Current Living Arrangements Not on file 12/2022 Potentially Unsafe Housing Conditions Not on sondra e 01/18/2023 Family and Community Support Answer Akira e Recorded Help with Day-to-Day Activities Not on file 01/18/2023 Lonely or Isolated Not on file 01/18/2023 Employment Answer Date Recorded Do you want help finding or keeping work or a ted b? Not on file 01/18/2023 Disabilities Answer Date Recorded Concentrating, Remembering, or Making Decisions Difficulty Not on file 01/18/2023 Doing Errands Independently Difficulty Not on fi le 01/18/2023 Education Answer Date Recorded Help with school or training? Not on file Preferred Language Not on file 01/18/2023 Comments Unknown Sex and Gender Information Value Date Recorded Sex Assigned at Not on file Legal Sex Female 11:50 AM EDT Gender Identity Not on file Sexual Orientation Not on file Last Filed Vital Signs Vital Sign Reading Time Taken Comments Blood Pressure 146/92 12/22/2022 9:54 AM EDT Pulse 78 12/22/2022 9:54 AM EDT Temperature - - Respiratory Rate - - Oxygen Saturation 98% 12/22/2022 9:54 AM EDT Inhaled Oxygen Concentration - - Weight 117 kg (257 lb) 12/22/2022 9:54 AM EDT Height 162.6 cm (5' 4 ) 12/22/2022 9:54 AM EDT Body Mass Index 44.11 12/22/2022 9:54 AM EDT Plan of Treatment Health Maintenance Due Date Last Done Comments Annual Gynecologic Pelvic an d Breast Exam 1976 TDAP/TD VACCINES (1 - Tdap) 10/18/1995 COLOGUARD 2021 COLON CANCER SCREENING 5 YEA R SIGMOIDOSCOPY 2021 COLONOSCOPY [address] CANCER SCREENING [address] COLONOGRAPHY 2021 FECAL OCCULT BLOOD TEST 2021 FIT Testing (1 year) 2021 ANNUAL PHYSICAL 12/22/2022 HEPATITIS C SCREENING 12/22/2022 MAMMOGRAM 03/17/2023 03/17/2021, 10/30/2020 COVID-19 Vaccine (3 - 2023-2 5 season) 2023 02/22/2021, 07/13/2020 INFLUENZA VACCINE 01/10/2025 Pneumococcal Vaccine 0-49 Aged Out No longer eligible based on patient's age to complete this topic Insurance [place] [id number] [employer] Care Teams Senior Design Engineer Relationship Specialty Start Date End Date Brent Coffey MD [address] [facility] [address] [place] [address] PCP - General Internal Medicine 08/27/22
--- OUTSIDE RECORDS SUMMARY | 2024-11-08 11:16 | XMS_ITS | Referral Summary ---
Author Organization [employer] ([place], [place], [place], [place]) Address [address] [place] [address] Care Team Providers Care Equipment Washer Name Role Phone Brent Coffey MD Primary Care Provider [phone] Allergies Active Allergy Reactions Criticality Noted Date [...] Date Eliazar rded Speak language other than Dutch at home Not on file 04/22/2023 Want help with school or training Not on file 04/22/2023 Substance Use Answer Date Recorded Used prescription meds for non-medical reasons N ot on file 04/22/2023 Used illegal drugs past 12 months Not on file 04/22/2023 Comments No Sex and Gender Information Value Date Recorded Sex Assigned at Female 05/04/2023 2:22 PM TUBE PULLER Legal Sex Female 8:51 AM TUBE PULLER Gender Identity Female 05/04/2023 2:22 PM TUBE PULLER Sexual Orientation Not on file Last Filed [...] Advance Directives For more information, please contact: [phone] Documents on File Type Date Recorded Patient Starcher And Tenter Range Feeder Expl anation Advance Directives and Living Will 05/04/2023 Care Teams Equipment Washer Relationship Specialty Start Date End Date Brent Coffey MD [address] [place] [address] PCP - General General Internal Medicine 04/23/23
== END 2024-11-07 23:59 | disposition home or self-care (01) ==
LOC: LAB.DROPOF 11-08 11:13
PROVIDERS: PCP Internal Medicine; Visit Provider Internal Medicine
DX: N64.3 Galactorrhea not associated with childbirth (principal); D64.9 Anemia, unspecified; I10 Essential (primary) hypertension; E78.5 Hyperlipidemia, unspecified; D35.2 Benign neoplasm of pituitary gland; Z85.528 Personal history of other malignant neoplasm of kidney
CPT/HCPCS: 80053; 83540; 83550; 84146; 85025

== ENCOUNTER 2024-11-13 12:55 | Outpatient (CLI) | payer BC, SELFPAY ==
--- NOTE | 2024-11-13 13:00 | US_ITS ---
FINAL REPORT TECHNIQUE: Ultrasound images of the kidneys were obtained. CLINICAL HISTORY: Right flank pain -- hx of kidney cancer -- left kidney removed FINDINGS: Limited images of the liver parenchyma demonstrate fatty infiltration. The right kidney measures 11.2 cm in length. It is normal echogenicity. There is no hydronephrosis. The left kidney is surgically absent. IMPRESSION: Fatty liver. Reviewed, Interpreted and Dictated by Kiran Worley MD Transcribed by Claudia Cornelius Authenticated and [facility]
--- OUTSIDE RECORDS SUMMARY | 2024-11-13 13:01 | XMS_ITS | Referral Summary ---
Author Organization [employer] ([place], [place], [place], [place]) Address [address] [place] [address] Care Team Providers Care House Calls Nurse Name Role Phone Brent Coffey MD Primary Care Provider [phone] Allergies Active Allergy Reactions Criticality Noted Date [...] Date Eliazar rded Speak language other than Austrian at home Not on file 04/22/2023 Want help with school or training Not on file 04/22/2023 Substance Use Answer Date Recorded Used prescription meds for non-medical reasons N ot on file 04/22/2023 Used illegal drugs past 12 months Not on file 04/22/2023 Comments No Sex and Gender Information Value Date Recorded Sex Assigned at Female 05/04/2023 2:22 PM CELLO TEACHER Legal Sex Female 8:51 AM CELLO TEACHER Gender Identity Female 05/04/2023 2:22 PM CELLO TEACHER Sexual Orientation Not on file Last Filed [...] Advance Directives For more information, please contact: [phone] Documents on File Type Date Recorded Patient Senior Applications Analyst Expl anation Advance Directives and Living Will 05/04/2023 Care Teams House Calls Nurse Relationship Specialty Start Date End Date Brent Coffey MD [address] [place] [address] PCP - General General Internal Medicine 04/23/23
--- OUTSIDE RECORDS SUMMARY | 2024-11-13 13:01 | XMS_ITS | Clinical Summary ---
Author Organization [facility] [employer] [facility] Address [address] [place] [address] Care Team Providers Care Food Management Aide Name Role Phone Brent Coffey MD Primary Care Provider [phone] Allergies Active Allergy Reactions Criticality Noted Date [...] to complete this topic Insurance [place] [id number] [employer] EMPLOYEE Care Teams Food Management Aide Relationship Specialty Start Date End Date Brent Coffey MD [address] [facility] [address] [place] [address] PCP - General Internal Medicine 08/27/22
--- OUTSIDE RECORDS SUMMARY | 2024-11-13 13:01 | XMS_ITS | Clinical Summary ---
Author Organization [employer] ([place], [place], [place], [place]) Address [address] [place] [address] Care Team Providers Care Telephone Clerk Name Role Phone Brent Coffey MD Primary Care Provider [phone] Allergies Active Allergy Reactions Criticality Noted Date [...] Date Eliazar rded Speak language other than German at home Not on file 04/22/2023 Want help with school or training Not on file 04/22/2023 Substance Use Answer Date Recorded Used prescription meds for non-medical reasons N ot on file 04/22/2023 Used illegal drugs past 12 months Not on file 04/22/2023 Comments No Sex and Gender Information Value Date Recorded Sex Assigned at Female 05/04/2023 2:22 PM STORY READER Legal Sex Female 8:51 AM STORY READER Gender Identity Female 05/04/2023 2:22 PM STORY READER Sexual Orientation Not on file Last Filed [...] Advance Directives For more information, please contact: [phone] Documents on File Type Date Recorded Patient Umbrella Tipper Hand Expl anation Advance Directives and Living Will 05/04/2023 Care Teams Telephone Clerk Relationship Specialty Start Date End Date Brent Coffey MD [address] [place] [address] PCP - General General Internal Medicine 04/23/23
--- OUTSIDE RECORDS SUMMARY | 2024-11-13 13:01 | XMS_ITS | Clinical Summary ---
Author Organization [facility] Address [address] [place] [address] Care Team Providers Care Personal Banking Officer Name Role Phone Brent Coffey MD Primary Care Provider [phone] Ellie Tanner NUTRITIONAL ASSISTANT Unavailable [phone] Allergies Active Allergy Reactions Criticality Noted Date [...] 2021 Sigmoidoscopy 2021 [facility]-Colorectal Cancer Screening 2021 [id number] Vaccine ( season) 2023 02/22/2021, 07/13/2020 [facility]-Influenza [...] to complete this topic Insurance Care Teams Personal Banking Officer Relationship Specialty Start Date End Date Brent Coffey MD [address] [place] [address] PCP - General 10/30/20 Ellie Tanner APRN [address] [place] [phone] Nurse Practitioner General Surgery 03/17/21
== END 2024-11-13 23:59 | disposition home or self-care (01) ==
LOC: RAD 12:55
PROVIDERS: PCP Internal Medicine; Visit Provider Internal Medicine
DX: K76.0 Fatty (change of) liver, not elsewhere classified (principal); Z90.5 Acquired absence of kidney; Z85.528 Personal history of other malignant neoplasm of kidney
CPT/HCPCS: 76770